=== PATIENT | male | born 1950 | race Caucasian/White ===

== ENCOUNTER 2022-10-13 14:53 | Emergency (ER) | payer MEDICARE, SELFPAY ==
--- NOTE | ~2022-10-13 | CT_ITS ---
EXAMINATION: CTA chest PE protocol DATE: 10/13/2022 20:08 INDICATION: Tachycardia TECHNIQUE: Computed tomography (CT) pulmonary angiogram of the chest was performed with 100 mL Omnipa que-350 intravenous contrast. Additional 3D reconstructions utilizing coronal maximum intensity proje ction (MIP) were performed. Automated exposure control and iterative reconstruction technique were em ployed. The dose-length product was 265.58 mGy-cm. COMPARISON: None FINDINGS: Excellent contrast opacification of the pulmonary arteries. There is mild streak artifact from dense contrast in the superior vena cava and right atrium. No significant motion artifact yielding diagnost ic for the study which demonstrates no pulmonary embolism. Mild biapical pleural-parenchymal scarring . No pneumonia, pulmonary edema, pleural effusion or pneumothorax. Heart size is normal. Atherosclero tic coronary artery calcification. No pericardial effusion. Thoracic aorta is normal in caliber. No p athologically enlarged thoracic lymphadenopathy. Mild thoracic spondylosis. IMPRESSION: 1. No pulmonary embolism or other acute cardiopulmonary disease. Reviewed, dictated and finalized at location A.
[2022-10-13 15:04] VITALS: BP 143/90; PULSE 106; RESP 20; TEMP 36.7; O2SAT 99
--- NOTE | 2022-10-13 15:10 | ECG_ITS ---
Measurements Intervals [place] Rate: 113 P: 85 OH: 141 QRS: 85 QRSD: 82 T: 65 QT: 327 QTc: 449 Interpretive Statements SINUS TACHYCARDIA POSSIBLE RIGHT ATRIAL ENLARGEMENT [0.25mV P WAVE] POSSIBLE LEFT ATRIAL ENLARGEMENT [-0.1mV P WAVE IN V1/V2] ABNORMAL RHYTHM ECG NO PREVIOUS ECG AVAILABLE FOR COMPARISON Electronically Signed On 10-14-2022 11:31:03 CDT by Eren Vivas M.D.
[2022-10-13 15:26] LABS: Basophils Absolute Auto 0.1 K/mm3 (0.0-0.1); Basophils Percent Auto 0.6 % (0.2-1.2); Eosinophils Percent Auto 12.8 % (0-4.4); Hematocrit 41.3 % (42.0-52.0); Hemoglobin 14.2 g/dL (14.0-18.0); Immature Granulocyte Absolute 0.03 K/mm3 (0.00-0.031); Immature Granulocyte Percent A 0.4 % (0-0.5); Lymphocytes Absolute Auto 1.63 K/mm3 (0.9-3.2); Lymphocytes Percent Auto 20.5 % (18.3-44.2); Mean Corpuscular HGB Conc 34.4 g/dl (32-36); Mean Corpuscular Hemoglobin 30.3 pg (26-34); Mean Corpuscular Volume 88.1 fl (80-100); Monocytes Absolute Auto 0.9 K/mm3 (0.1-0.6); Monocytes Percent Auto 11.2 % (2.6-8.5); Neutrophils Absolute Auto 4.3 K/mm3 (1.3-6.7); Neutrophils Percent Auto 54.5 % (45.5-73.1); Platelet Count Result 256 k/mm3 (150-375); Red Blood Count 4.69 M/mm3 (4.6-6.20); Red Cell Distribution Width 12.9 % (11.5-14.5)
[2022-10-13 15:37] LABS: Alanine Aminotransferase 19 U/L (6-50); Albumin Level 4.6 g/dL (3.5-5.1); Alkaline Phosphatase 78 U/L (38-126); Anion Gap 13 mmol/L (8-16); Aspartate Amino Transferase 24 U/L (17-59); Bilirubin,Total 0.5 mg/dL (0.2-1.3); Blood Urea Nitrogen 11 mg/dL (9-20); Calcium 9.3 mg/dL (8.4-10.2); Carbon Dioxide 23 mmol/L (22-30); Chloride 100 mmol/L (98-107); Estimated CRCL calculation 61 ml/min; Estimated Glomerular Filt Rate > 60; Glucose 112 mg/dL (65-110); Lipase 63 U/L (23-300); Potassium 3.6 mmol/L (3.4-5.0); Sodium 136 mmol/L (137-145)
[2022-10-13 16:01] LABS: Appearance Urine Clear (Clear); Bacteria Urine None Seen /hpf; Bilirubin Urine 2+ (Negative); Blood Urine Negative (Negative); Color Urine Dark Yellow (Yellow); Glucose Urine UA Negative (Negative); Hyaline Casts Urine Present /lpf; Ketones Urine 3+ mg/dL (Negative); Leukocyte Esterase Ur Negative LEU/UL (Negative); Need Manual Microscopic Reviewed; Nitrate Urine Negative (Negative); Protein Urine 2+ mg/dL (Negative); RBC Urine 0-2 /hpf (0-2); Specific Grav Ur 1.027 (1.001-1.035); Squamous Epithelial Cell Urine Occasional /hpf (Few); WBC Urine 0-5 /hpf
[2022-10-13 16:04] LABS: Add Urine Microscopic? YES
[2022-10-13 18:49] VITALS: PULSE 116
[2022-10-13] MEDS: SODIUM CHLORIDE 0.9% IV 1,000 ML 999 ML IV CONT (19:23)
[2022-10-13] MEDS: ONDANSETRON HCL ODT 4 MG TABLET PO (19:23)
[2022-10-13 19:33] VITALS: BP 155/86; PULSE 110; RESP 14; O2SAT 99
--- NOTE | 2022-10-13 19:39 | ED.ARRPALP ---
HPI - Arrhythmia/Palpitations General Chief Complaint: Arrhythmia/Palpitations Stated Complaint: rapid hr Time Seen by Provider: 10/13/22 18:57 History of Present Illness HPI narrative: This is a 71-year-old male, past history of coronary artery disease status post stenting, who presents to the emergency department complaining of palpitations associated with COVID. 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 This is associated with nausea and diarrhea with occasional streaks of blood. The patient states the diarrhea stopped yesterday. Since arriving here, he has felt overall improved. Related Data Allergies Allergy/AdvReac Type Severity Reaction Status Date / Time No Known Allergies Allergy Verified 10/13/22 18:51 Review of Systems Review of Systems: CONSTITUTIONAL: Denies fever, chills, or sweats. CARDIOVASCULAR: Palpitations denies chest pain, or edema. RESPIRATORY: Denies cough or dyspnea. GASTROINTESTINAL: Nausea and intermittent diarrhea denies abdominal pain, vomiting GENITOURINARY: Denies dysuria or hematuria. SKIN: Denies rash or itching. MUSCULOSKELETAL: Denies back pain, joint pain, or myalgia. NEUROLOGIC: Denies headache, numbness, dizziness, or weakness. PSYCHIATRIC: Denies anxiety or depression. [facility] Past Medical History Medical History ASHD (arteriosclerotic heart disease) COPD mixed type Mixed hyperlipidemia Squamous cell carcinoma of right ear Vitamin D deficiency Surgical History Surgical History Hx of spinal fusion Family History Family History Mother Patient's mother is , Onset Age: 90 Father Patient's father is , Onset Age: 70 Social History Social History Smoking status: Never smoker Alcohol intake: never Exam Narrative: GENERAL: Well-developed, well-nourished, and in no acute distress. HEAD: Normocephalic, atraumatic. EYES: PERRLA and EOMI. ENT: Nares clear, no rhinorrhea or epistaxis. Mucous membranes moist. Oropharynx without tonsillar hypertrophy exudate or other lesions. CHEST: Clear to auscultation. No respiratory distress. No wheezes rales or rhonchi HEART: Tachycardic with regular rhythm. No murmur heard. Normal peripheral pulses. ABDOMEN: Soft, nontender, nondistended, normal active bowel sounds. EXTREMITIES: Normal range of motion. No edema. SKIN: Warm, dry, no rash. NEURO: Alert and oriented x3. Moving all 4 limbs purposefully. PSYCH: Normal mood and affect. Course Course Emergency Course: 21:05 - CT PE scan negative for PE or other acute cardiopulmonary abnormality. CBC within normal limits. Chemistries demonstrate a mildly decreased sodium of 136 but is otherwise unremarkable. UA demonstrates ketonuria but is otherwise unremarkable. After IV fluids, the patient states he feels improved. Will discharge with antiemetics. The patient is outside of the window for Paxlovid. Discussed return and emergency precautions including signs/symptoms of respiratory distress and ACS. The patient voiced excellent understanding and is comfortable with the plan. All questions answered to his satisfaction. Vital Signs Vital signs: Vital Signs Temperature 98.1 F 10/13/22 15:04 Pulse Rate 106 H 10/13/22 15:04 Respiratory Rate 20 10/13/22 15:04 Blood Pressure 143/90 H 10/13/22 15:04 Pulse Oximetry 99 10/13/22 15:04 Oxygen Delivery Room Air 10/13/22 15:04 Temperature 98.1 F 10/13/22 15:04 Pulse Rate 110 H 10/13/22 21:45 Respiratory Rate 14 10/13/22 21:45 Blood Pressure 149/80 H 10/13/22 21:45 Pulse Oximetry 98 10/13/22 21:45 Oxygen Delivery Room Air 10/13/22 15:04 MDM - Arrhythmia/P
[2022-10-13 21:45] VITALS: BP 149/80; PULSE 110; RESP 14; O2SAT 98
== END 2022-10-13 21:47 | disposition home or self-care (01) ==
PROVIDERS: Emergency Medicine; Emergency Provider Preventive Medicine Aerospace Medicine; PCP Physician Assistant
DX: U07.1 COVID-19 (principal); R00.2 Palpitations; R00.0 Tachycardia, unspecified; I25.10 Atherosclerotic heart disease of native coronary artery without angina pectoris; J44.9 Chronic obstructive pulmonary disease, unspecified; E78.2 Mixed hyperlipidemia; E55.9 Vitamin D deficiency, unspecified; Z85.828 Personal history of other malignant neoplasm of skin; Z98.1 Arthrodesis status; R94.31 Abnormal electrocardiogram [ECG] [EKG]
CPT/HCPCS: 36415; 71275; 80053; 81001; 83690; 85025; 93005; 96360; 96361; 99284; A9270; J7030; Q9967

== ENCOUNTER 2024-03-21 00:50 | Day surgery (SDC) | payer MEDICARE, SELFPAY ==
[2024-03-21] VITALS (14 sets, daily range): BP systolic 109–135; BP diastolic 65–96; PULSE 67–84; RESP 14–22; TEMP 36.9; O2SAT 98–100; BMI 21.0
--- OUTSIDE RECORDS SUMMARY | 2024-03-21 00:52 | XMS_ITS | Clinical Summary ---
Author Organization [facility] [place] [facility] [address] [place] [address] Care Team Providers Care Cargo Broker Name Role Phone Krishan Roberson Primary Care Provider [phone] Yordy Dumont MD Unavailable [phone] MD Unavailable [phone] Allergies Active Allergy Reactions Criticality Noted Date Comments Dairy - All Forms And Ingredients Diarrhea,Nausea only,Stomach upset Low 10/25/2019 Ranolazine Headache,Nausea only Low 04/01/2017 backache Tramadol Nausea only Medium 07/27/2017 Medications aspirin 81 mg chewable tablet chew 1 tablet by oral route every day 0 0 06/25/19 16 Active nitroglycerin (NITROSTAT) 0.[address] 1 tablet by buccal route at the first sign of an attack; no more than 3 tabs are recommended within a 15 minute period. 25 3 12/22/19 14 Active albuterol HFA (PROVENTIL HFA,VENTOLIN HFA) 90 mcg/actuation inhaler inhale 2 puff by inhalation route every 4 - 6 hours as needed 0 Inhaler 0 10/15/19 16 Active ondansetron ODT (ZOFRAN-ODT) 8 mg disintegrating tablet Take 1 tablet (8 mg total) by mouth every 8 (eight) hours as needed for nausea or vomiting 30 tablet 08/16/19 22 Active naloxone (NARCAN) 4 mg/actuation spray,non-aerosol Administer 1 spray into affected nostril(s) as needed for opioid reversal or respiratory depression Call 911. Administer a single spray in one nostril. Repeat every 3 minutes as needed if no or minimal response. 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 Administer 1 spray into affected nostril(s) as needed for respiratory depression or opioid reversal 1 each 10/30/19 23 Active dicyclomine (BENTYL) 10 mg capsule TAKE ONE CAPSULE BY MOUTH THREE TIMES DAILY BEFORE MEALS NEEDED FOR ABDOMINAL CRAMPS 90 capsule 1 01/19/20 23 Active fluticasone propionate (FLONASE) 50 mcg/actuation nasal sprayIndications:C hronic rhinitis Administer 2 sprays into each nostril daily 1 each 05/28/19 24 Active cyclobenzaprine (FLEXERIL) 10 mg tabletIndications: Cervical radiculopathy,Lumb ar radiculopathy Take 1 tablet (10 mg total) by mouth nightly as needed for muscle spasms 30 tablet 2 02/03/20 24 025 Active HYDROcodone-acetam inophen (NORCO) 10-325 mg per tabletIndications: Pain Take 1 tablet by mouth 3 (three) times a day as needed for pain 90 tablet 02/22/19 25 025 Active HYDROcodone-acetam inophen (NORCO) 10-325 mg per tabletIndications: Pain Take 1 tablet by mouth 3 (three) times a day as needed for pain 90 tablet 03/24/19 25 025 Active HYDROcodone-acetam inophen (NORCO) 10-325 mg per tabletIndications: Pain Take 1 tablet by mouth 3 (three) times a day as needed for pain 90 tablet 04/24/19 25 025 Active isosorbide mononitrate ER (IMDUR) 60 mg 24 hr tablet Take 1 tablet (60 mg total) by mouth daily 90 tablet 2 02/09/20 24 Active atorvastatin (LIPITOR) 40 mg tablet Take 1 tablet (40 mg total) by mouth daily 90 tablet 2 02/09/20 24 Active metoprolol tartrate (LOPRESSOR) 25 mg immediate release tablet Take 1 tablet (25 mg total) by mouth 2 (two) times a day 180 tablet 2 02/09/20 24 Active Active Problems Problem Noted Date Diagnosed Date Status post insertion of drug eluting coronary a rtery stent 03/06/2024 Pseudophakia of both eyes 09/01/2023 Assessment & Plan (11/16/2023 12:46 PM CDT): 1 month PO PRK OS Doing well Normal Epi, no haze Return in 2 months Assessment & Plan (10/26/2023 9:57 AM CDT): 5 Day PO PRK OD Healing well, Patient reports better distance and near Removed bandage CL Continue moxi/pred QID, Start ointment at night Return in 3 weeks Assessment & Plan (09/01/2023 11:07 AM CDT): Referral from Dr. Jason De Los Santos for PRK over cataract surgery Pseudophakia OU PCIOL OU Patient would like to have OD set for intermediate Discussed PRK surgery, longer healing time, and discomfort. Discussed risk of corneal haze, off label use of mitomycin C and sunglasses Discussed risk of infection and activities following surgery. Discussed post-operative symptoms of nighttime glare and dryness after surgery Discussed presbyopia and reading glasses. Discussed no guarantee of 20/20 vision and risk of enhancement surgery Dr. Myers met with patient and discussed risks of surgery PRK OD Only -1.25 Goal OD In House Sensorineural hearing loss (SNHL) of both ears 0 05/28/2023 Assessment & Plan (05/28/2023 3:26 PM CDT): Hearing test moderate to severe SNHL Chronic rhinitis 05/28/2023 Assessment & Plan (05/28/2023 3:26 PM CDT): Flonase 2 sprays into each nostril while looking down over the sink, do not sniff in or blow nose after use for at least 30 minutes daily Palpitations 10/23/2022 Dyspepsia 07/12/2022 Assessment & Plan (07/12/2022 9:42 AM CDT): Chronic nausea. Will schedule EGD. Discussed healthy low fatlow acid diet. Anemia 07/12/2022 Assessment & Plan (07/12/2022 9:44 AM CDT): Mild normocytic anemia. Check iron studies, B12 and folate. Schedule EGD to complete GI evaluation. Normocytic anemia 07/02/2022 Personal history of colonic polyps 03/09/2022 Overview (03/09/2022): Added automatically from request for surgery [id number] Family history of colon cancer 03/09/2022 Overview (03/09/2022): Added automatically from request for surgery [id number] Screening for malignant neoplasm of colon 2021 Overview (11/03/2021): Added automatically from request for surgery [id number] Myofascial pain syndrome, cervical 09/01/2021 Mixed hyperlipidemia 08/28/2021 History of 2019 novel coronavirus disease (COVID -19) 08/28/2021 Lumbar radiculopathy 02/29/2020 Insomnia secondary to chronic pain 08/01/2019 Degenerative disc disease, cervical 07/05/2019 Bilateral occipital neuralgia 07/05/2019 Cervical radiculopathy 07/05/2019 prison (current) use of opiate analgesic 12/24 Cervicalgia 04/20/2018 COPD (chronic obstructive pulmonary disease) Dizziness 02/23/2018 Cervical post-laminectomy [id number] ACIF Chronic bilateral low back pain without sciatica 01/19/2018 Lumbar post-laminectomy syndrome 10/26/2017 Dyspnea on exertion 06/01/2016 Overview (07/17/2016): BEAVERS (dyspnea on exertion) 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 12/18/2015 Overview (05/29/2016): Coronary artery disease involving tanana coronary artery of tanana heart without angina pectoris Vasovagal syncope 12/18/2015 Overview (05/29/2016): Vasovagal syncope Orthostatic hypotension 10/15/2015 Overview (05/29/2016): Orthostatic hypotension Hypertension 10/15/2015 Overview (05/29/2016): Labile hypertension Chronic fatigue syndrome 10/15/2015 Overview (05/29/2016): Chronic fatigue Central perforation of tympanic membrane 010 Resolved Problems Problem Noted Date Diagnosed Date Resolved Date Dyslipidemia 12/18/2015 08/28/2021 Overview (05/29/2016): Dyslipidemia Encounters Date Type Department Care Team Description 03/06/2024 10:30 AM CAR GROOMER Office Visit [facility] [address] [place] [phone] Efrain Chaney MD 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 (HCC) (Primary Dx) 03/06/2024 Telephone [facility] Cardiology [address] [place] [phone] Efrain Chaney MD 02/09/2024 Telephone [facility] Cardiology [address] [place] [phone] Efrain Chaney MD Med Refill 02/03/2024 10:27 AM CAR GROOMER - 02/03/2024 11:59 PM CAR GROOMER Hospital Encounter [facility] [address] [place] [address] Dyspnea, unspecified type Discharge Disposition: Discharge to home or self care 02/03/2024 9:40 AM CAR GROOMER - 02/03/2024 11:59 PM CAR GROOMER Hospital Encounter [facility] A, Ameya. [address] [place] [address] MD Lumbar post-laminectomy syndrome (Primary Dx); Cervical radiculopathy; Lumbar radiculopathy; Cervical post-laminectomy [id number] ACIF Discharge Disposition: Discharge to home or self care 01/12/2024 Telephone [facility] [address] [place] [address] Power Le OD Reschedule 01/10/2024 Telephone [facility] [address] [place] [address] Shayla Joe, DERRELL 01/07/2024 1:50 PM CAR GROOMER Lab [facility] [address] [place] [address] Chronic fatigue syndrome; 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 (HCC) 12/29/2023 1:00 PM CAR GROOMER Office Visit [facility] [address] [place] [address] Shayla Joe, DERRELL Lipid screening (Primary Dx); Chronic fatigue syndrome; 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 (HCC); Dyspnea, unspecified type from Last 3 Months Surgical History Surgery Date Site/Laterality Comments SPINE SURGERY OTHER SURGICAL HISTORY ORIF right ankle CARPAL TUNNEL RELEASE Right ULNAR TUNNEL RELEASE Right COLONOSCOPY 02/23/2016 - 02/21/2017 UPPER GASTROINTESTINAL ENDOSCOPY Medical History Medical History Date Comments BEAVERS (dyspnea on exertion) Orthostatic hypotension Dyslipidemia Coronary artery disease Asthma Irritable bowel syndrome Hypertension treated by PCP Covid-19 06/22/2021 Stroke (HCC) Family History Medical History Relation Name Comments Colon cancer Maternal Grandmother Seizures Mother Seizure disorde r; Arthritis Other 1 Family history of Arthritis; Cancer Other 2 Family history of Cancer, unknown; Hypertension Other 3 Family history of Hypertension; Alcohol abuse Other 4 Family history of Alcoholism; Heart disease Other 5 Family history of heart problems; Lung disease Other 6 Family history of lung problems; Relation Name Status Comments Maternal Grandmother Mother Other 1 Other 2 Other 3 Other 4 Other 5 Other 6 Social History Tobacco Use Types Packs/Day Years Used Date Smoking Tobacco: Never Smokeless Tobacco: Never Tobacco Cessation:Counseling Given: Not Answered Alcohol Use Standard Drinks/Week Comments No 0 (1 standard drink = 0.6 oz pur e alcohol) AUDIT-C Answer Date Recorded Q1: How often do you have a drink containing alc ohol? Never 06/05/2022 Average Number of Drinks Not on file 023 Frequency of Binge Drinking Not on file 05/23 PHQ-2 Answer Date Recorded PHQ-2 Total Score (If total score is 3 or more points, staff should administer the PHQ-9) 0 02/03/2024 Personal Safety Answer Date Recorded Have you ever been in or are you currently in a harmful physical or emotional relationship or is someone making you feel afraid or unsafe? Denies 07/07/2022 Sex and Gender Information Value Date Recorded Sex Assigned at Not on file Legal Sex Male 6:35 PM CAR GROOMER Gender Identity Male 09/12/2019 2:57 PM CDT Sexual Orientation Straight 09/12/2019 2: 57 PM CDT Obstetrics History Last Filed Vital Signs Vital Sign Reading Time Taken Comments Blood Pressure 116/68 03/06/2024 10:20 AM CAR GROOMER Pulse 69 03/06/2024 10:20 AM CAR GROOMER Temperature 36.6 ??C (97.9 ??F) 07/07/2022 2:30 PM CD T Respiratory Rate 18 02/03/2024 10:02 AM CAR GROOMER Oxygen Saturation 98% 03/06/2024 10:20 AM CAR GROOMER Inhaled Oxygen Concentration - - Weight 71.7 kg (158 lb) 03/06/2024 10:20 AM CAR GROOMER Height 182.9 cm (6') 03/06/2024 10:20 AM CAR GROOMER Body Mass Index 21.43 03/06/2024 10:20 AM CAR GROOMER Plan of Treatment Health Maintenance Due Date Last Done Comments Fall Risk Assessment 1950 Hepatitis C Screening 1950 Pneumococcal vaccine 65+ (1 of 2 - PCV) 1958 DTaP/Tdap/Td Vaccine (1 - Tdap) 10/18/1963 Hepatitis B Screening 1970 Zoster Vaccine (1 of 2) 2002 Well Visit 65+ 2017 Influenza Vaccine (#1) 2023 Depression Screening 02/02/2025 02/03/2024, 02/03/2024, 11/04/2023, Additional history exists Colon Cancer Screening-Colonoscopy 03/31/2032 03/31/2022 Colon Cancer Screening-CT Colonography Discontinued 03/31/2022 Colon Cancer Screening-DNA Stool Discontinued 03/31/19 Colon Cancer Screening-FIT Discontinued 03/31/2022 Colon Cancer Screening-Sigmoidoscopy Discontinued 03/31/2022 Goals Goal Patient Goal Type Associated Problems Recent Progress Patient-Stated? Author [facility] On track( 022 2:23 PM CAR GROOMER) Susan Simmons RN Note: Patient will establish a comfort-function goal and identify the pain level that will allow the patient to perform desired activities and achieve an acceptable quality of life. 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 (HCC) DIFFERENTIAL AUTO Routine 01/07/2024 1:5 5 PM CAR GROOMER Chronic fatigue syndrome CBC WITH AUTO DIFFERENTIAL Routine 01/07/2024 1:55 PM CAR GROOMER Chronic fatigue syndrome COMPREHENSIVE METABOLIC PANEL Routine 01/07/2024 1:55 PM CAR GROOMER 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 Sob x 2-3 months ??hx stents ?? TECHNIQUE: PA and lateral ??radiographic view(s) of the chest. COMPARISON: None FINDINGS: LUNGS: ??No discrete consolidation. ??No effusion or pneumothorax. ?? HEART/MEDIASTINUM: ??Cardiac silhouette and mediastinal contours are within normal limits. ??Atherosclerotic calcification of the thoracic aorta. LINES/TUBES: ??Cervical fusion hardware partially visualized. BONES: ??Cervical and thoracic spondylosis with degenerative disc disease. ??No acute process IMPRESSION: No acute cardiopulmonary abnormality. THIS IS AN ELECTRONICALLY VERIFIED FINAL REPORT 02/10/2024 1:54 PM - Electronically signed by ??Adela Angulo M.D. TW: TW D: ??02/10/2024 1:54 PM T: ??02/10/2024 1:54 PM Report ID: [id number] Reading Location: ??[id number] Procedure Note Adela Angulo MD - 02/10/2024 EXAM DESCRIPTION: XR CHEST PA LATERAL 2 VIEWS REASON FOR STUDY: Dyspnea Sob x 2-3 months hx stents TECHNIQUE: PA and lateral radiographic view(s) of the chest. COMPARISON: None FINDINGS: LUNGS: No discrete consolidation. No effusion or pneumothorax. HEART/MEDIASTINUM: Cardiac silhouette and mediastinal contours are within normal limits. Atherosclerotic calcification of the thoracic aorta. LINES/TUBES: Cervical fusion hardware partially visualized. BONES: Cervical and thoracic spondylosis with degenerative disc disease.No acute process IMPRESSION: No acute cardiopulmonary abnormality. THIS IS AN ELECTRONICALLY VERIFIED FINAL REPORT 02/10/2024 1:54 PM - Electronically signed by Adela Angulo M.D. TW: TW Report ID: [id number] Reading Location: [place] [address] us Shayla Joe CELL ATTENDANT IMG XR PROCEDURES Final Resu lt * eGFR (01/07/2024 1:55 PM CAR GROOMER) eGFR 75 >=60 mL/min/1. 73 m2 Comment: Interpretive Data Reference Interval Normal ?>/= 90 mL/min/1.73m2 Mildly decreased* ? 60 - 89 mL/min/1.73m2 Mildly to moderately decreased ?45 - 59 mL/min/1.73m2 Moderately to severely decreased ??30 - 44 mL/min/1.73m2 Severely decreased ?15 - 29 mL/min/1.73m2 Kidney Failure ?< 15 ??mL/min/1.73m2 *Relative to young adult level Estimated glomerular filtration rate is determined by the 2020 CKD-EPI equation recommended by the National Kidney Foundation (A Unifying Approach to GFR Estimation: Recommendations of the NKF-ASK Task Force on Reassessing the Inclusion of Race in Diagnosing Kidney Disease, JASN 2020). The CKD-EPI equation should not be used for patients with unstable renal function and has not been validated in children and those over 70. Current interpretive data was last reviewed 2020. Testing performed by: [facility], [address] [place] [address]., [id number] Blood 01/07/2024 1:55 PM CAR GROOMER 01/07/2024 8:43 PM CAR GROOMER us Shayla Joe NP LAB BLOOD ORDERABLES Final R esult [facility] ([place]) 1 [facility] [place] [address] * (ABNORMAL) Differential, auto (01/07/2024 1:55 PM CAR GROOMER) Pathologist [facility] Neutrophil abs 3.1 1.5 - 6.5 K/cumm Comment:Testing performed by : [facility], [address] [place] [address]., [id number] Imm gran abs 0.0 0.0 - 0.1 K/cumm [facility] ([place]) Comment:Testing performed by : [facility], [address] [place] [address]., [address] Lymphocyte abs 2.2 0.8 - 3.3 K/cumm [facility] ([place]) Comment:Testing performed by : [facility], [address] [place] [address]., [id number] Monocyte abs 0.5 0.2 - 0.8 K/cumm [facility] ([place]) Comment:Testing performed by : [facility], [address] [place] [address]., [id number] Eosinophil abs 2.0(H) 0.0 - 0.5 K/cumm [facility] ([place]) Comment:Testing performed by : [facility], [address] [place] [address]., [address] Basophil abs 0.1 0.0 - 0.1 K/cumm [facility] ([place]) Comment:Testing performed by : [facility], [address] [place] [address]., [address] Neutrophil pct 39.8 % [facility] ([place]) Comment: Interpretive Data Percent cell count reference ranges are not reported, since discordance with absolute values may lead to misinterpretation of CBC data. Current Interpretive Data was last revised on 2017. Testing performed by: [facility], [address] [place] [address]., [address] Imm gran pct 0.3 % [facility] ([place]) Comment: Interpretive Data Percent cell count reference ranges are not reported, since discordance with absolute values may lead to misinterpretation of CBC data. Current Interpretive Data was last revised on 2017. Testing performed by: [address] [address] Lymphocyte pct 27.7 % [facility] ([place]) Comment: Interpretive Data Percent cell count reference ranges are not reported, since discordance with absolute values may lead to misinterpretation of CBC data. Current Interpretive Data was last revised on 2017. Testing performed by: [address] [address] Monocyte pct 6.2 % [facility] ([place]) Comment: Interpretive Data Percent cell count reference ranges are not reported, since discordance with absolute values may lead to misinterpretation of CBC data. Current Interpretive Data was last revised on 2017. Testing performed by: [facility], [address] [place] [address]., [address] Eosinophil pct 25.1 % [facility] ([place]) Comment: Interpretive Data Percent cell count reference ranges are not reported, since discordance with absolute values may lead to misinterpretation of CBC data. Current Interpretive Data was last revised on 2017. Testing performed by: [facility], [address] [place] [address]., [address] Basophil pct 0.9 % [facility] ([place]) Comment: Interpretive Data Percent cell count reference ranges are not reported, since discordance with absolute values may lead to misinterpretation of CBC data. Current Interpretive Data was last revised on 2017. Testing performed by: [facility], [address] [place] [address], [id number] Blood 01/07/2024 1:55 PM CAR GROOMER 01/07/2024 8:37 PM CAR GROOMER us Shayla Joe NP LAB BLOOD ORDERABLES Final R esult [facility] ([place]) 1 [facility] [place] [address] * Thyroid Function [place] (01/07/2024 1:55 PM CAR GROOMER) TSH 1.74 0.30 - 4.20 mcIUnit/mL Comment:Testing performed by : [facility], [address] [place] [address], [address] Blood 01/07/2024 1:55 PM CAR GROOMER 01/07/2024 8:37 PM CAR GROOMER us Shayla Joe CELL ATTENDANT LAB BLOOD ORDERABLES Final R esult [facility] ([place]) 1 [facility] [place] [place] [address] * (ABNORMAL) CBC with auto differential (01/07/2024 1:55 PM CAR GROOMER) WBC 7.8 3.8 - 9.9 K/cumm Comment:Testing performed by : [address], [address] Hgb 12.3(L) 13.0 - 17.5 g/dL [facility] ([place]) Comment:Testing performed by : [address], [address] Hct 37.0(L) 38.9 - 50.3 % [facility] ([place]) Comment:Testing performed by : [address], [address] Plt 236 150 - 400 K/cumm [facility] ([place]) Comment:Testing performed by : [address], [address] MPV 10.7 9.1 - 12.3 fL [facility] ([place]) Comment:Testing performed by : [address], [address] RBC 3.98(L) 4.30 - 5.80 M/cumm [facility] ([place]) Comment:Testing performed by : [address], [address] MCV 93.0 81.3 - 96.4 fL [facility] ([place]) Comment:Testing performed by : [address], [address] MCH 30.9 27.1 - 33.3 pg [facility] ([place]) Comment:Testing performed by : [address], [address] MCHC 33.2 32.3 - 35.7 g/dL [facility] ([place]) Comment:Testing performed by : [address], [address] RDW CV 13.5 11.1 - 14.9 % [facility] ([place]) Comment:Testing performed by : [address], [address] RDW SD 46.1 35.7 - 48.1 fL [facility] ([place]) Comment:Testing performed by : [address], [address] NRBC abs 0.00 0.00 - 0.01 K/cumm [facility] ([place]) Comment:Testing performed by : [address], [address] Blood 01/07/2024 1:55 PM CAR GROOMER 01/07/2024 8:37 PM CAR GROOMER Shayla Joe NP LAB BLOOD ORDERABLES Final R esult [facility] ([place]) 1 [facility] Department [place] [address] * Comprehensive metabolic panel (01/07/2024 1:55 PM CAR GROOMER) Sodium 139 135 - 145 mmol/L Comment:Testing performed by : [address], [address] Potassium, pl 4.3 3.3 - 4.9 mmol/L [facility] ([place]) Comment:Testing performed by : [address], [address] Chloride 103 97 - 110 mmol/L [facility] ([place]) Comment:Testing performed by : [address], [address] CO2 26 22 - 32 mmol/L [facility] ([place]) Comment:Testing performed by : [address], [address] Anion gap 10 2 - 15 mmol/L [facility] ([place]) Comment:Testing performed by : [address], [address] BUN 14 6 - 25 mg/dL [facility] ([place]) Comment:Testing performed by : [address], [address] Creatinine 1.06 0.80 - 1.30 mg/dL [facility] ([place]) Comment:Testing performed by : [address], [address] Glucose 111 70 - 199 mg/dL [facility] ([place]) Comment: Interpretive Data Fasting glucose >/= 126 mg/dl is diagnostic for diabetes. ?? Fasting is defined as no caloric intake for at least 8 hours. Fasting glucose between 100 mg/dl to 125 mg/dl is diagnostic of prediabetes. In a patient with classic symptoms of hyperglycemia or hyperglycemic crisis, a random glucose >/= 200 mg/dl is diagnostic for diabetes. In the absence of unequivocal hyperglycemia, results should be confirmed by repeat testing. The classification and Diagnosis of Diabetes Diabetes Care 2021; 46: S19-S40. Current interpretive data was last revised 2022. Testing performed by: [facility], [address] [place] [address]., [address] Calcium 9.5 8.5 - 10.3 mg/dL [facility] ([place]) Comment:Testing performed by : [address], [address] Bilirubin, total 0.5 0.1 - 1.2 mg/dL [facility] ([place]) Comment:Testing performed by : [address], [address] Protein, pl 7.4 6.5 - 8.5 g/dL [facility] ([place]) Comment:Testing performed by : [address], [address] Albumin 4.3 3.5 - 5.0 g/dL [facility] ([place]) Comment:Testing performed by : [address] [address] Alk phos 72 40 - 130 Units/L [facility] Comment:Testing performed by : [address], [address] ALT 14 7 - 55 Units/L [facility] Comment:Testing performed by : [address], [address] AST 21 10 - 50 Units/L [facility]) Comment:Testing performed by : [address], [address] Blood 01/07/2024 1:55 PM CAR GROOMER 01/07/2024 8:37 PM CAR GROOMER Shayla Joe NP LAB BLOOD ORDERABLES Final R esult [facility] [place]) [facility] Department [place] [address] * POCT lipid panel (12/29/2023 1:05 PM CAR GROOMER) Cholesterol, POC 120 mg/dL HDL, POC 39 mg/dL Triglycerides, POC 67 mg/dL LDL Cholesterol POC 68 mg/dL Chol/HDL Ratio, POC 1.8 Non-HDL Cholesterol, POC 81 mg/dL Cholesterol Total, POC 120 mg/dL Capillary blood 12/29/2023 1 :05 PM CAR GROOMER us Shayla Joe NP POINT OF CARE TEST ORDERABLE S Final Result * COLONOSCOPY (03/31/2022 10:24 AM CAR GROOMER) Anatomical Region Laterality Modality Other Narrative Procedure Note Chilo Solorio MD - 03/31/2022 10:24 AM CST [facility] Patient Name: Magnus Muhammad Procedure Date: 03/31/2022 10:24 AM Date of : 1950 Admit Type: Outpatient Age: 71 Gender: Male Attending MD: Chilo Solorio M.D. Room: [facility] ENDOSCOPY ROOM 1 Note Status: Finalized Patient Profile: This is a 71 year old male. Patient has chronicpain in the left lower quadrant area. Had episode oflower GI bleeding 6 months ago possibly secondary diverticulosis. History of polyps. No familyhistory of colon cancer Procedure: Colonoscopy Indications: High risk colon cancer surveillance: Personalhistory of colonic polyps, Last colonoscopy: 2017 Referring MD: GARTH Whitley Providers: Chilo Solorio M.D. Impression: - Diverticulosis in the sigmoid colon. - Internal hemorrhoids. - No specimens collected. Recommendation: - Repeat colonoscopy in 6 years for screeningpurposes. - Low residue diet and avoid nuts, popcorn, andseeds. Drink plenty of fluids. - Follow up in our GI office if abdominal pain continued. Medicines: Monitored Anesthesia Care Complications: No immediate complications. Estimated Blood Loss: Estimated blood loss: none. Procedure: Pre-Anesthesia Assessment: - Prior to the procedure, a History and Physicalwas performed, and patient medications and allergieswere reviewed. The patient's tolerance of previous anesthesia was also reviewed. The risks andbenefits of the procedure and the sedation options and risks were discussed with the patient. All questions were answered, and informed consent was obtained. Prior Anticoagulants: The patient has taken noanticoagulant or antiplatelet agents. ASA Grade Assessment: II -A patient with mild systemic disease. After reviewing the risks and benefits, the patient was deemed in satisfactory condition to undergo the procedure. The benefits, risks and alternatives of theprocedure and sedation were discussed and informed consentwas obtained. All questions were answered. Please referto the signed informed consent document in the medical record. The bowel preparation used was Miralax and bisacodyl tablets via split dose instruction. The scope was passed under direct vision. The Pediatric Colonoscope PCF-H190L [id number] was introducedthrough the anus and advanced to the the cecum, identifiedby appendiceal orifice and ileocecal valve. Thequality of the bowel preparation was good. Bowel prep was administered using a split dose. Findings: The perianal and digital rectal examinations were normal. The descending colon, transverse colon, ascending colon and cecum appeared normal. Multiple medium-mouthed diverticula were found in the sigmoid colon. Mild erythema noted in the very distal part of sigmoid colon likely nonspecific but no definite inflammatory changes noted Internal hemorrhoids were found during retroflexion. The hemorrhoids were small. Electronically signed by Chilo Solorio M.D. Chilo Solorio M.D. 03/31/2022 12:17:52 PM Number of Addenda: 0 Note Initiated On: 03/31/2022 10:24 AM Procedure Code(s): --- Professional --- G0105, Colorectal cancer screening; colonoscopy on individual at high risk Diagnosis Code(s): --- Professional --- Z86.010, Personal history of colonic polyps K64.8, Other hemorrhoids K57.30, Diverticulosis of large intestine without perforation orabscess without bleeding CPT copyright 2020 [employer]. All rights reserved. The codes documented in this report are preliminary and upon history card clerk reviewmay be revised to meet current compliance requirements. Recognized by the [employer] for promoting quality in endoscopy Chilo Solorio MD ENDOSCOPY PROCEDURES Final Result from Last 3 Months or Most Recently Relevant to Health Maintenance Insurance MEDICARE SOLUTIONS MEDICARE SOLUTIONS MEDICARE SOLUTIONS Advance Directives For more information, please contact: [phone] * Full Code (Latest Code Status on File) Date Activated Date Inactivated Comments 07/07/2022 11:22 AM 07/07/2022 6:54 PM * Full Code Date Activated Date Inactivated Comments 03/31/2022 10:36 AM 03/31/2022 4:53 PM * Full Code Date Activated Date Inactivated Comments 03/31/2022 10:36 AM 03/31/2022 10:36 AM Care Teams Cargo Broker Relationship Specialty Start Date End Date Krishan Roberson PA [address] [place] [address] PCP - General 07/27/17 Yordy Dumont MD [address] [facility] [address] [place] [address] Anesthesiologist Pain Management 01/05/22 Rd Adams MD [address] [place] [address] [address] [place] [address] Consulting Physician Anesthesiology 11/04/23
--- OUTSIDE RECORDS SUMMARY | 2024-03-21 00:52 | XMS_ITS | Encounter Summary ---
Author Organization [facility] Healthcare Address [address] [place] [address] Care Team Providers Care Licensed Guide Name Role Phone Krishan Roberson Primary Care Provider Yordy Dumont MD Unavailable [phone] [address] Adams MD Unavailable [phone] Encounter Details Date Type Department Care Team (Late st Contact Info) Description 12/02/2020 Documentation [facility] [address] [place] [address] A, Ameya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 Gender Identity Male 09/12/2019 2:57 PM CDT Sexual Orientation Straight 09/12/2019 2: 57 PM CDT documented as of this encounter Plan of Treatment Not on file documented as of this encounter Visit Diagnoses Not on filedocumented in this encounter Care Teams Licensed Guide Relationship Specialty Start Date End Date Krishan Roberson PA [address] [place] [address] PCP - General 07/27/17 Yordy Dumont MD [address] [place] [address] [address] [place] [id number] Anesthesiologist Pain Management 01/05/22 Rd Adams MD [address] [place] [address] [address] [place] [id number] Consulting Physician Anesthesiology 11/04/23 documented as of this encounter
--- OUTSIDE RECORDS SUMMARY | 2024-03-21 00:53 | XMS_ITS ---
Author Organization [facility] Address [address] [place] [address] Phone Care Team Providers Care Honey Blender Name Role Phone Unavailable Unavailable Unavailable Plan of Treatment No Plan of Treatment Recorded Assessments Includes: Assessments for all patient encounters No Assessments Recorded Medical Equipment - Implanted Devices Includes: Current and historical Devices No Medical Equipment Recorded Medications Administered Includes: Administered Medications in patient's chart No Administered Medications Recorded Results Includes: Results from 03/21/2023 through 03/21/2024 No Results Recorded For Specified Dates History of Present Illness History of Present Illness not supported for this document type No History of Present Illness Recorded Social History No Social History Recorded - Smoking Status Unknown Medical History Includes: Medical History in patient's chart No Medical History Recorded Family History Includes: Family History in patient's chart No Family History Recorded Review of Systems Review of Systems not supported for this document type No Review of Systems Recorded Mental Status No Mental Status Recorded Functional Status No Functional Status Recorded Physical Exam Physical Exam not supported for this document type No Physical Exam Recorded Clinical Notes Includes: Signed Clinical Notes starting from 03/13/2022 No Clinical Notes Recorded
--- OUTSIDE RECORDS SUMMARY | 2024-03-21 00:53 | XMS_ITS ---
Care Plan - [facility] Created on: March 21, 2024 MICHELLE REES : 1950 Sex: Male Author Organization [facility] Address [address] [place] [address] Phone Care Team Providers Care Solder Deposit Operator Name Role Phone Unavailable Unavailable Unavailable
--- OUTSIDE RECORDS SUMMARY | 2024-03-21 00:53 | XMS_ITS | Referral Summary ---
Author Organization [facility] [address] [place] [address] 162 [address] [facility] [address] [place] [address] Care Team Providers Care Water Team Leader Name Role Phone Krishan Roberson Primary Care Provider [phone] Yordy Dumont MD Unavailable [phone] Adams MD Unavailable Encounters Date Type Department Care Team Description 03/06/2024 Telephone [facility] [address] [facility] [address] [place] [address] Efrain Chaney MD 03/06/2024 10:30 AM PERSONAL LINES INSURANCE AGENT Office Visit [facility] Cardiology [address] [facility] [address] [place] [phone] Efrain Chaney MD 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) (Primary Dx) 02/09/2024 Telephone [facility] Cardiology [address] [place] [address] 162 [address] [place] [address] Efrain Chaney MD Med Refill 02/03/2024 10:27 AM PERSONAL LINES INSURANCE AGENT - 02/03/2024 11:59 PM PERSONAL LINES INSURANCE AGENT Hospital Encounter [facility] [address] [place] [address] Dyspnea, unspecified type Discharge Disposition: Discharge to home or self care 02/03/2024 9:40 AM PERSONAL LINES INSURANCE AGENT - 02/03/2024 11:59 PM PERSONAL LINES INSURANCE AGENT Hospital Encounter [facility] 2 [facility] B[facility] A, Ameya. [id number] Adams MD Lumbar post-laminectomy syndrome (Primary Dx); Cervical radiculopathy; Lumbar radiculopathy; Cervical post-laminectomy [id number] Discharge Disposition: Discharge to home or self care 01/12/2024 Telephone [facility] [address] [place] [address] Power Le, OD Reschedule 01/10/2024 Telephone [facility] [address] [place] [address] Shayla Joe, DERRELL 01/07/2024 1:50 PM PERSONAL LINES INSURANCE AGENT Lab [facility] [address] [place] [address] Chronic fatigue syndrome; 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) 12/29/2023 1:00 PM PERSONAL LINES INSURANCE AGENT Office Visit [facility] Cardiology [address] [facility] [address] [place] [address] Shayla Joe, DERRELL Lipid screening (Primary Dx); Chronic fatigue syndrome; 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); Dyspnea, unspecified type from Last 3 Months Allergies Active Allergy Reactions Criticality Noted Date [...] 22 Active naloxone (NARCAN) 4 mg/actuation spray,non-aerosolI ndications:[facility] (current) use of opiate analgesic Administer 1 [...] (03/09/2022): Added automatically from request for surgery [id number] Family history of colon cancer 03/09/2022 Overview (03/09/2022): Added automatically from request for surgery [id number] Screening for malignant neoplasm of colon 2021 Overview (11/03/2021): Added automatically from request for surgery [id number] Myofascial pain syndrome, cervical 09/01/2021 Mixed hyperlipidemia 08/28/2021 History of 2019 novel coronavirus disease (COVID -19) 08/28/2021 Lumbar radiculopathy 02/29/2020 Insomnia secondary to chronic pain 08/01/2019 Degenerative disc disease, cervical 07/05/2019 Bilateral occipital neuralgia 07/05/2019 Cervical radiculopathy 07/05/2019 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 12/24 Cervicalgia 04/20/2018 COPD (chronic obstructive pulmonary disease) Dizziness 02/23/2018 Cervical post-laminectomy [id number] ACIF Chronic bilateral low back pain without sciatica 01/19/2018 Lumbar post-laminectomy syndrome 10/26/2017 Dyspnea on exertion 06/01/2016 Overview (07/17/2016): BEAVERS (dyspnea on exertion) Coronary artery disease of n 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 12/18/2015 Overview (05/29/2016): Coronary artery disease involving gila river coronary artery of gila river heart without angina pectoris Vasovagal syncope 12/18/2015 Overview (05/29/2016): Vasovagal syncope Orthostatic hypotension 10/15/2015 Overview (05/29/2016): Orthostatic hypotension Hypertension 10/15/2015 Overview (05/29/2016): Labile hypertension Chronic fatigue syndrome 10/15/2015 Overview (05/29/2016): Chronic fatigue Central perforation of tympanic membrane 010 Resolved Problems Problem Noted Date Diagnosed Date Resolved Date Dyslipidemia 12/18/2015 08/28/2021 Overview (05/29/2016): Dyslipidemia Social History Tobacco Use Types Packs/Day Years [...] on file Legal Sex Male 6:35 PM PERSONAL LINES INSURANCE AGENT Gender Identity Male 09/12/2019 2:57 PM CDT Sexual Orientation Straight 09/12/2019 2: 57 PM CDT Last Filed Vital Signs Vital Sign Reading Time Taken Comments Blood Pressure 116/68 03/06/2024 10:20 AM PERSONAL LINES INSURANCE AGENT Pulse 69 03/06/2024 10:20 AM PERSONAL LINES INSURANCE AGENT Temperature 36.6 ??C (97.9 ??F) 07/07/2022 2:30 PM CD T Respiratory Rate 18 02/03/2024 10:02 AM PERSONAL LINES INSURANCE AGENT Oxygen Saturation 98% 03/06/2024 10:20 AM PERSONAL LINES INSURANCE AGENT Inhaled Oxygen Concentration - - Weight 71.7 kg (158 lb) 03/06/2024 10:20 AM PERSONAL LINES INSURANCE AGENT Height 182.9 cm (6') 03/06/2024 10:20 AM PERSONAL LINES INSURANCE AGENT Body Mass Index 21.43 03/06/2024 10:20 AM PERSONAL LINES INSURANCE AGENT Plan of Treatment Not on file Goals Goal Patient Goal Type Associated Problems Recent Progress Patient-Stated? Author [facility] On track( 022 2:23 PM PERSONAL LINES INSURANCE AGENT) Susan Simmons, RN Note: Patient will establish a comfort-function goal and identify the pain level that will allow the patient to perform desired activities and achieve an acceptable quality of life. 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) DIFFERENTIAL AUTO Routine 01/07/2024 1:5 5 PM PERSONAL LINES INSURANCE AGENT Chronic fatigue syndrome CBC WITH AUTO DIFFERENTIAL Routine 01/07/2024 1:55 PM PERSONAL LINES INSURANCE AGENT Chronic fatigue syndrome COMPREHENSIVE METABOLIC PANEL Routine 01/07/2024 1:55 PM PERSONAL LINES INSURANCE AGENT 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) THYROID FUNCTION CASCADE Routine 01/07/2024 1:55 PM PERSONAL LINES INSURANCE AGENT Chronic fatigue syndrome POCT LIPID PANEL Routine 12/29/2023 1:05 PM PERSONAL LINES INSURANCE AGENT Lipid screening COLONOSCOPY 03/31/2022 10:24 AM PERSONAL LINES INSURANCE AGENT from Last 3 Months or Most Recently Relevant to Health Maintenance Results * X-ray chest 2 views (02/03/2024 10:40 AM PERSONAL LINES INSURANCE AGENT) Anatomical Region Laterality Modality Body, Chest N/A Computed Radiogr aphy 02/10/2024 1:53 PM PERSONAL LINES INSURANCE AGENT Narrative 02/10/2024 1:54 PM PERSONAL LINES INSURANCE AGENT EXAM DESCRIPTION: XR CHEST PA LATERAL 2 [...] Electronically signed by ??Adela Angulo M.D. TW: KWESI D: ??02/10/2024 1:54 PM T: ??02/10/2024 1:54 PM Report ID: [id number] Reading Location: ??[id number] Procedure Note Adela Angulo MD - 02/10/2024 [...] Adela Angulo M.D. TW: TW Report ID: [id number] Reading Location: [place] [address] us Shayla Joe NP IMG XR PROCEDURES Final Resu lt * eGFR (01/07/2024 1:55 PM PERSONAL LINES INSURANCE AGENT) eGFR 75 >=60 mL/min/1. 73 m2 Comment: [...] was last reviewed 2020. Testing performed by: [facility], [address] [place] [address], [place]., [address] Blood 01/07/2024 1:55 PM PERSONAL LINES INSURANCE AGENT 01/07/2024 8:43 PM PERSONAL LINES INSURANCE AGENT us Shayla Bebe Tatyana BEEF GRINDER LAB BLOOD ORDERABLES Final R esult [facility] ([place]) 1 [facility] Department [place] [address] * (ABNORMAL) Differential, auto (01/07/2024 1:55 PM PERSONAL LINES INSURANCE AGENT) Neutrophil abs 3.1 1.5 - 6.5 K/cumm Comment:Testing performed by : [address], [address] Imm gran abs 0.0 0.0 - 0.1 K/cumm [facility] ([place]) Comment:Testing performed by : [address], [address] Lymphocyte abs 2.2 0.8 - 3.3 K/cumm [facility] ([place]) Comment:Testing performed by : [address], [address] Monocyte abs 0.5 0.2 - 0.8 K/cumm [facility] ([place]) Comment:Testing performed by : [facility], [address] [place] [address]., [address] Eosinophil abs 2.0(H) 0.0 - 0.5 K/cumm [facility] ([place]) Comment:Testing performed by : [address] [address] Basophil abs 0.1 0.0 - 0.1 K/cumm [facility] ([place]) Comment:Testing performed by : [address], [address] Neutrophil pct 39.8 % [facility] ([place]) Comment: Interpretive Data Percent cell count reference ranges are not reported, since discordance with absolute values may lead to misinterpretation of CBC data. Current Interpretive Data was last revised on 2017. Testing performed by: [address], [address] Imm gran pct 0.3 % [facility] ([place]) Comment: Interpretive Data Percent cell count reference ranges are not reported, since discordance with absolute values may lead to misinterpretation of CBC data. Current Interpretive Data was last revised on 2017. Testing performed by: [address], [place]., [address] Lymphocyte pct 27.7 % [facility] ([place]) Comment: Interpretive Data Percent cell count reference ranges are not reported, since discordance with absolute values may lead to misinterpretation of CBC data. Current Interpretive Data was last revised on 2017. Testing performed by: [facility], [address] [place] [address]., [address] Monocyte pct 6.2 % [facility] ([place]) Comment: Interpretive Data Percent cell count reference ranges are not reported, since discordance with absolute values may lead to misinterpretation of CBC data. Current Interpretive Data was last revised on 2017. Testing performed by: [facility], [address] [place] [address]., [address] Eosinophil pct 25.1 % [facility] ([place]) Comment: Interpretive Data Percent cell count reference ranges are not reported, since discordance with absolute values may lead to misinterpretation of CBC data. Current Interpretive Data was last revised on 2017. Testing performed by: [facility], [address] [place] [address]., [address] Basophil pct 0.9 % [facility] ([place]) Comment: Interpretive Data Percent cell count reference ranges are not reported, since discordance with absolute values may lead to misinterpretation of CBC data. Current Interpretive Data was last revised on 2017. Testing performed by: [address] [address] Blood 01/07/2024 1:55 PM PERSONAL LINES INSURANCE AGENT 01/07/2024 8:37 PM PERSONAL LINES INSURANCE AGENT us Shayla Joe BEEF GRINDER LAB BLOOD ORDERABLES Final R esult [facility] ([place]) 1 [facility] Department of Laboratories [place], [place] [id number] * Thyroid Function [place] (01/07/2024 1:55 PM PERSONAL LINES INSURANCE AGENT) TSH 1.74 0.30 - 4.20 mcIUnit/mL Comment:Testing performed by : [address], [address] Blood 01/07/2024 1:55 PM PERSONAL LINES INSURANCE AGENT 01/07/2024 8:37 PM PERSONAL LINES INSURANCE AGENT Shayla Joe BEEF GRINDER LAB BLOOD ORDERABLES Final R esult [facility] ([place] 1 [facility] Department [place] [address] * (ABNORMAL) CBC with auto differential (01/07/2024 1:55 PM PERSONAL LINES INSURANCE AGENT) Pathologist [facility] WBC 7.8 3.8 - 9.9 K/cumm Comment:Testing performed by : [address], [address] Hgb 12.3(L) 13.0 - 17.5 g/dL [facility] ([place]) Comment:Testing performed by : [address], [address] Hct 37.0(L) 38.9 - 50.3 % [facility] ([place]) Comment:Testing performed by : [address], [address] Plt 236 150 - 400 K/cumm [facility] ([place]) Comment:Testing performed by : [address], [address] MPV 10.7 9.1 - 12.3 fL [facility] ([place]) Comment:Testing performed by : [address], [address] RBC 3.98(L) 4.30 - 5.80 M/cumm [facility] ([place]) Comment:Testing performed by : [address], [address] MCV 93.0 81.3 - 96.4 fL [facility] ([place]) Comment:Testing performed by : [address], [address] MCH 30.9 27.1 - 33.3 pg [facility] ([place]) Comment:Testing performed by : [address], [address] MCHC 33.2 32.3 - 35.7 g/dL [facility] ([place]) Comment:Testing performed by : [facility], [address] [place] [address], [address] RDW CV 13.5 11.1 - 14.9 % [facility] ([place]) Comment:Testing performed by : [facility], [address] [place] [address], [address] RDW SD 46.1 35.7 - 48.1 fL [facility] ([place]) Comment:Testing performed by : [facility], [address] [place] [address], [address] NRBC abs 0.00 0.00 - 0.01 K/cumm [facility] ([place]) Comment:Testing performed by : [address], [address] Blood 01/07/2024 1:55 PM PERSONAL LINES INSURANCE AGENT 01/07/2024 8:37 PM PERSONAL LINES INSURANCE AGENT Shayla Joe BEEF GRINDER LAB BLOOD ORDERABLES Final R esult [facility] ([place]) 1 [facility] Department [place] [address] * Comprehensive metabolic panel (01/07/2024 1:55 PM PERSONAL LINES INSURANCE AGENT) Sodium 139 135 - 145 mmol/L Comment:Testing performed by : [facility], [address] [place] [address], [address] Potassium, pl 4.3 3.3 - 4.9 mmol/L [facility] ([place]) Comment:Testing performed by : [facility], [address] [place] [address], [address] Chloride 103 97 - 110 mmol/L [facility] ([place]) Comment:Testing performed by : [address], [address] CO2 26 22 - 32 mmol/L [facility] ([place]) Comment:Testing performed by : [address], [address] Anion gap 10 2 - 15 mmol/L [facility] ([place]) Comment:Testing performed by : [facility], [address], [place]., [address] BUN 14 6 - 25 mg/dL [facility] ([place]) Comment:Testing performed by : [address] [address] Creatinine 1.06 0.80 - 1.30 mg/dL [facility] ([place]) Comment:Testing performed by : [address] [address] Glucose 111 70 - 199 mg/dL [facility] [...] was last revised 2022. Testing performed by: [address], [address] Calcium 9.5 8.5 - 10.3 mg/dL [facility] ([place]) Comment:Testing performed by : [address] [address] Bilirubin, total 0.5 0.1 - 1.2 mg/dL [facility] ([place]) Comment:Testing performed by : [address] [address] Protein, pl 7.4 6.5 - 8.5 g/dL [facility] ([place]) Comment:Testing performed by : [address], [address] Albumin 4.3 3.5 - 5.0 g/dL [facility] ([place]) Comment:Testing performed by : [address], [address] Alk phos 72 40 - 130 Units/L [facility] ([place]) Comment:Testing performed by : [address], [address] ALT 14 7 - 55 Units/L [facility] ([place]) Comment:Testing performed by : [address], [place]., [address] AST 21 10 - 50 Units/L [facility] ([place]) Comment:Testing performed by : [facility], [address] [place] [address]., [address] Blood 01/07/2024 1:55 PM PERSONAL LINES INSURANCE AGENT 01/07/2024 8:37 PM PERSONAL LINES INSURANCE AGENT us Shayla Joe NP LAB BLOOD ORDERABLES Final R esult [facility] ([place] 1 [facility] Department [place] [address] * POCT lipid panel (12/29/2023 1:05 PM PERSONAL LINES INSURANCE AGENT) Cholesterol, POC 120 mg/dL HDL, POC 39 mg/dL Triglycerides, POC 67 mg/dL LDL Cholesterol POC 68 mg/dL Chol/HDL Ratio, POC 1.8 Non-HDL Cholesterol, POC 81 mg/dL Cholesterol Total, POC 120 mg/dL Capillary blood 12/29/2023 1 :05 PM PERSONAL LINES INSURANCE AGENT us Shayla Joe NP POINT OF CARE TEST ORDERABLE S Final Result * COLONOSCOPY (03/31/2022 10:24 AM PERSONAL LINES INSURANCE AGENT) Anatomical Region Laterality Modality Other Narrative Procedure Note Chilo Solorio MD - 03/31/2022 10:24 AM CST [facility] Patient Name: Magnus Muhammad Procedure Date: 03/31/2022 10:24 AM Date of : 1950 Admit Type: Outpatient Age: 71 Gender: Male Attending MD: Chilo Solorio M.D. Room: [facility] ENDOSCOPY ROOM 1 Note Status: Finalized Patient Profile: This is a 71 year old male. Patient has chronicpain in the left lower quadrant area. Had episode oflower GI bleeding 6 months ago possibly secondary diverticulosis. History of polyps. No familyhistory of colon cancer Procedure: Colonoscopy Indications: High risk colon cancer surveillance: Personalhistory of colonic polyps, Last colonoscopy: 2016 Referring MD: GARTH Whitley Providers: Chilo Solorio [...] under direct vision. The Pediatric Colonoscope PCF-H190L [id number] was introducedthrough the anus and advanced to [...] perforation orabscess without bleeding CPT copyright 2020 [employer]. All rights reserved. The codes documented in this report are preliminary and upon special education secretary reviewmay be revised to meet current compliance requirements. Recognized by the [employer] for promoting quality in endoscopy Chilo Solorio MD ENDOSCOPY PROCEDURES Final Result from Last 3 Months or Most Recently Relevant to Health Maintenance Insurance MEDICARE SOLUTIONS MEDICARE SOLUTIONS MEDICARE SOLUTIONS Advance Directives For more information, please contact: [phone] * Full Code (Latest Code Status on File) Date Activated Date Inactivated Comments 07/07/2022 11:22 AM 07/07/2022 6:54 PM * Full Code Date Activated Date Inactivated Comments 03/31/2022 10:36 AM 03/31/2022 4:53 PM * Full Code Date Activated Date Inactivated Comments 03/31/2022 10:36 AM 03/31/2022 10:36 AM Care Teams Water Team Leader Relationship Specialty Start Date End Date Krishan Roberson PA [address] [place] [address] PCP - General 07/27/17 Yordy Dumont MD [address] [place] [address] [address] [place] [address] Anesthesiologist Pain Management 01/05/22 Rd Adams MD [address] [place] [address] [address] [place] [address] Consulting Physician Anesthesiology 11/04/23
--- OUTSIDE RECORDS SUMMARY | 2024-03-21 00:53 | XMS_ITS | Data Portability ---
[facility] Organization [facility] Address [address] [facility] [place] [address] Care Team Providers Care Patient Services Manager Name Role Phone EVAN ROBERSON Primary Care Provider [phone] BOB AVENDANO Building Construction Foreman HODAN WEI Medicare Sales Executive KATE BARON Orthopedist ALON QUEZADA Orthopedist Assessment No assessment recorded. Plan of Treatment Reminders Order Date Submit Date Provider Last Modified By Organization Details Last Modified Time Details Appointments None recorded. Lab PSA, total, serum or plasma 2021 022 [facility], [address] [facility], [facility], [place], [address], 13:11:19 CBC 2021 022 [facility], [address] [facility], [facility], [place], [address], 13:11:17 CMP, serum or plasma 2021 022 [facility], [address] [facility], [address], [place], [address], 13:11:17 HbA1c (hemoglobi n A1c), blood 2021 022 [facility] In-Office Order, Internal Use Only DO Not Attach Compendium DO Not Attach Compendium, Do Not Delete/merge, [id number] 12:40:44 lipid panel, serum 2021 022 [facility], [address] [facility], [address], [place], [address], 2 13:11:18 HbA1c (hemoglobi n A1c), blood 2022 023 [facility] In-Office Order, Internal Use Only DO Not Attach Compendium DO Not Attach Compendium, Do Not Delete/merge, [id number] 3 12:09:48 CMP, serum or plasma 2022 023 [facility], [address] [facility], [address], [place], [address], 3 06:17:42 lipid panel, serum 2022 023 [facility], [address] [facility], [address], [place], [address], 3 06:17:42 CBC 2022 023 [facility], [address], [address], [place], [address], 3 06:17:43 Referral otolaryngo logist referral 2023 024 [facility] Da Silva DO, [address] [facility] , [address], [address], [place], [address], 4 16:33:38 Procedures None recorded. Surgeries None recorded. Imaging XR, chest, 2 view 2022 023 [facility], [address] [place], [address], 3 12:01:08 US, duplex, arterial, lower extremity 2023 024 [facility], [address] [place], [address], 4 21:30:27 Medication Orders omeprazole 40 mg capsule,de layed release 2021 022 [id number], [address], [place], [place], [id number], 12:26:17 Patient TargetsNo targets recorded. Patient Instructions Encounter Date Encounter Id Patient Instructions Last Modified By Organization Details Last Modified Time 05/07/2021 [id number] pancreatitis: care instructions jnanney Not available 05/07/2021 12:18:45 05/14/2022 [id number] A healthy lifestyle: care instructions jnanney Not available 05/14/2022 11:49:53 shortness of breath: care instructions jnanney Not available 05/14/2022 11:49:20 03/03/2023 [id number] A healthy lifestyle: care instructions jnanney Not available 03/03/2023 11:54:32 iron deficiency anemia: care instructions jnanney Not available 03/03/2023 11:55:14 07/05/2023 [id number] Peripheral Arterial Disease (PAD): Care Instructions jnanney Not available 07/05/2023 14:22:02 Reason for Referral Medical Reimbursement Specialist Referral fo r Perforation of left tympanic membrane Referring Physician: Evan Roberson, Family Medicine, Encounter Date: 03/03/2023 Results Created Date Observation Date Name Description Value Unit Range Abnormal Flag Note LastModifiedBy Organization Detail LastModifiedTime 05/08/1905/08/2021 COMP. METAB OLIC PANEL (14) glucose 116 mg/dL 65-99 above high normal Not Available [facility] ([facility]) [address] [facility], [place], [address], 05/08/2021 13:11:16 05/08/19 22 05/08/2021 COMP. METAB OLIC PANEL (14) BUN 14 mg/dL 8-27 Not Available [facility] ([facility]) [address] [facility], [place], [address], 05/08/2021 13:11:16 05/08/19 22 05/08/2021 COMP. METAB OLIC PANEL (14) creatinine 0.87 mg/dL 0.76-1 .27 Not Available [facility] ([facility]) [address] [facility] [place], [address], 05/08/2021 13:11:16 05/08/19 22 05/08/2021 COMP. METAB OLIC PANEL (14) eGFR 94 mL/mi n/1.7 3 >59 Not Available [facility] ([facility]) [address] [facility] [place], [address], 05/08/2021 13:11:16 05/08/19 22 05/08/2021 COMP. METAB OLIC PANEL (14) BUN/creatini ne ratio 16 10-24 Not Available [facility] ([facility]) [address] [facility], [place], [address], 05/08/2021 13:11:16 05/08/19 22 05/08/2021 COMP. METAB OLIC PANEL (14) sodium 142 mmol/ L 134-14 4 Not Available [facility] ([facility]) [address] [facility] [place], [address], 05/08/2021 13:11:16 05/08/19 22 05/08/2021 COMP. METAB OLIC PANEL (14) potassium 4.8 mmol/ L 3.5-5. 2 Not Available [facility] ([facility]) [address] [facility], [place], [address], 05/08/2021 13:11:16 05/08/19 22 05/08/2021 COMP. METAB OLIC PANEL (14) chloride 104 mmol/ L 96-106 Not Available [facility] ([facility]) [address] [place], [address], 05/08/2021 13:11:16 05/08/19 22 05/08/2021 COMP. METAB OLIC PANEL (14) carbon dioxide, total 22 mmol/ L 20-29 Not Available [facility] ([facility]) [address] [facility], [place], [address], 05/08/2021 13:11:16 05/08/19 22 05/08/2021 COMP. METAB OLIC PANEL (14) calcium 9.2 mg/dL 8.6-10 .2 Not Available [facility] ([facility]) [address] [facility], [place], [address], 05/08/2021 13:11:16 05/08/19 22 05/08/2021 COMP. METAB OLIC PANEL (14) protein, total 7.0 g/dL 6.0-8. 5 Not Available [facility] ([facility] [address] [facility] [place], [address], 05/08/2021 13:11:16 05/08/19 22 05/08/2021 COMP. METAB OLIC PANEL (14) albumin 4.3 g/dL 3.8-4. 8 Not Available [facility] ([facility]) [address] [facility], [place], [address], 05/08/2021 13:11:16 05/08/19 22 05/08/2021 COMP. METAB OLIC PANEL (14) globulin, total 2.7 g/dL 1.5-4. 5 Not Available [facility] ([facility]) [address] [facility] [place], [address], 05/08/2021 13:11:16 05/08/19 22 05/08/2021 COMP. METAB OLIC PANEL (14) A/G ratio 1.6 1.2-2. 2 Not Available [facility] ([facility]) [address] [facility] [place], [address], 05/08/2021 13:11:16 05/08/19 22 05/08/2021 COMP. METAB OLIC PANEL (14) bilirubin, total 0.5 mg/dL 0.0-1. 2 Not Available [facility] ([facility]) [address] [facility], [place], [address], 05/08/2021 13:11:16 05/08/19 22 05/08/2021 COMP. METAB OLIC PANEL (14) alkaline phosphatase 64 IU/L 44-121 Not Available [facility] ([facility]) [address], [place], [address], 05/08/2021 13:11:16 05/08/19 22 05/08/2021 COMP. METAB OLIC PANEL (14) AST (SGOT) 15 IU/L 0-40 Not Available [facility] ([facility]) [address] [facility], [place], [address], 05/08/2021 13:11:16 05/08/19 22 05/08/2021 COMP. METAB OLIC PANEL (14) ALT (SGPT) 12 IU/L 0-44 Not Available [facility] ([facility]) [address] [facility], [place], [address], 05/08/2021 13:11:16 05/08/19 22 05/08/2021 CBC, PLATE LET, NO DIFFE RENTI AL WBC 6.9 x10e3 /uL 3.4-10 .8 Not Available [facility] ([facility]) [address] [facility], [place], [address], 05/08/2021 13:11:17 05/08/19 22 05/08/2021 CBC, PLATE LET, NO DIFFE RENTI AL RBC 4.04 x10e6 /uL 4.14-5 .80 below low normal Not Available [facility] ([facility]) [address] [facility], [place], [address], 05/08/2021 13:11:17 05/08/19 22 05/08/2021 CBC, PLATE LET, NO DIFFE RENTI AL hemoglobin 12.7 g/dL 13.0-1 7.7 below low normal Not Available [facility] ([facility]) [address] [facility], [place], [address], 05/08/2021 13:11:17 05/08/19 22 05/08/2021 CBC, PLATE LET, NO DIFFE RENTI AL hematocrit 37.6 % 37.5-5 1.0 Not Available [facility] ([facility]) [address] [facility], [place], [address], 05/08/2021 13:11:17 05/08/19 22 05/08/2021 CBC, PLATE LET, NO DIFFE RENTI AL MCV 93 fL 79-97 Not Available [facility] ([facility]) [address] [facility], [place], [address], 05/08/2021 13:11:17 05/08/19 22 05/08/2021 CBC, PLATE LET, NO DIFFE RENTI AL MCH 31.4 pg 26.6-3 3.0 Not Available [facility] ([facility]) [address] [facility], [place], [address], 05/08/2021 13:11:17 05/08/19 22 05/08/2021 CBC, PLATE LET, NO DIFFE RENTI AL MCHC 33.8 g/dL 31.5-3 5.7 Not Available [facility] ([facility]) [address] [facility], [place], [address], 05/08/2021 13:11:17 05/08/19 22 05/08/2021 CBC, PLATE LET, NO DIFFE RENTI AL RDW 12.7 % 11.6-1 5.4 Not Available [facility] ([facility]) [address] [facility], [place], [address], 05/08/2021 13:11:17 05/08/19 22 05/08/2021 CBC, PLATE LET, NO DIFFE RENTI AL platelets 209 x10e3 /uL 150-45 0 Not Available [facility] ([facility]) [address] [facility], [place], [address], 05/08/2021 13:11:17 05/08/19 22 05/08/2021 CBC, PLATE LET, NO DIFFE RENTI AL NRBC VOCATIONAL REHABILITATION ADMINISTRATOR Not Available [facility] ([facility]) [address] [facility], [place], [address], 05/08/2021 13:11:17 05/08/19 22 05/08/2021 LIPID PANEL cholesterol, total 145 mg/dL 100-19 9 Not Available [facility] ([facility]) [address] [facility], [place], [address], 05/08/2021 13:11:17 05/08/19 22 05/08/2021 LIPID PANEL triglyceride s 77 mg/dL 0-149 Not Available [facility] ([facility]) [address] [facility], [place], [address], 05/08/2021 13:11:17 05/08/19 22 05/08/2021 LIPID PANEL HDL cholesterol 44 mg/dL >39 Not Available [facility] ([facility]) [address] [facility], [place], [address], 05/08/2021 13:11:17 05/08/19 22 05/08/2021 LIPID PANEL VLDL cholesterol chaya 15 mg/dL 5-40 Not Available [facility] ([facility]) [address] [facility], [place], [address], 05/08/2021 13:11:17 05/08/19 22 05/08/2021 LIPID PANEL LDL chol calc ([facility]) 86 mg/dL 0-99 Not Available [facility] ([facility]) [address] [facility], [place], [address], 05/08/2021 13:11:17 05/08/19 22 05/08/2021 LIPID PANEL comment: VOCATIONAL REHABILITATION ADMINISTRATOR Not Available [facility] ([facility]) [address] [facility], [place], [address], 05/08/2021 13:11:17 05/08/19 22 05/08/2021 CARDI OVASC ULAR REPOR T interpretati on Note Suppl ement al repor t is avail able. Not Available [facility] ([facility]) [address] [facility], [place], [address], 05/08/2021 13:11:18 05/08/19 22 05/08/2021 CARDI OVASC ULAR REPOR T pdf Not applic able Not Available [facility] ([facility]) [address] [facility], [place], [address], 05/08/2021 13:11:18 05/08/19 22 05/08/2021 LITHO LINK CKD PROGR AM interpretati on Note Medic al Direc tor's Note: Effec tive 2021, [facility] uses the 2020 CKD-E PI creat inine equat ion witho ut a race facto r to calcu late and repor t eGFR resul ts. eGFR resul ts repor yumiko prior to this date using the 2008 CKD-E PI equat ion are no longe r inclu ded in this repor t inter preta tion. Suppl ement al repor t is avail able. Not Available [facility] ([facility]) [address] [facility], [place], [address], 05/08/2021 13:11:18 05/08/19 22 05/08/2021 LITHO LINK CKD PROGR AM pdf . Not Available [facility] ([facility]) [address] [facility], [place], [address], 05/08/2021 13:11:18 05/08/19 22 05/08/2021 PROST ATE-S PECIF IC AG prostate specific Ag 0.4 NG/mL 0.0-4. 0 Lashell ECLIA metho dolog y. Accor deo to the Ameri can Urolo gical Assoc iatio n, Serum PSA shoul d decre ase and remai n at undet ectab le level s after radic al prost atect veronica. The AUA defin es bioch emica l recur rence as an initi al PSA value 0.2 ng/mL or great er follo wed by a subse quent confi rmato ry PSA value 0.2 ng/mL or great er. Value s obtai gloria with diffe rent assay metho ds or kits canno t be used inter garcia eamjy . Resul ts canno t be inter prete d as absol vernon evide nce of the prese nce or absen ce of [facility] se. Not Available [facility] ([facility]) [address] [facility], [place], [address], 05/08/2021 13:11:19 05/08/19 22 05/07/2021 HbA1c (hemo globi n A1c), blood HbA1c 5.7 Not Available In-Office Order Internal Use Only DO Not Attach Compendium DO Not Attach Compendium, Do Not Delete/merge, [id number] 05/07/2021 12:18:14 05/15/1905/14/2022 LIPID PANEL cholesterol, total 153.0 mg/dL 140.0- 200.0 Not Available [facility] ([facility]) [address] [place], [address], 05/15/2022 06:17:42 05/15/1905/14/2022 LIPID PANEL triglyceride s 93 mg/dL <=150 Not Available [facility] ([facility]) [address] [place], [address], 05/15/2022 06:17:42 05/15/1905/14/2022 LIPID PANEL HDL cholesterol 44.4 mg/dL 40.0-1 00.0 Not Available [facility] ([facility]) [address] [place], [address], 05/15/2022 06:17:42 05/15/1905/14/2022 LIPID PANEL VLDL cholesterol chaya 18.60 mg/dL 5.00-4 0.00 Not Available [facility] ([facility]) [address] [place], [address], 05/15/2022 06:17:42 05/15/1905/14/2022 LIPID PANEL LDL chol calc ([facility]) 91.2 Not Available [facility] ([facility]) [address] [place], [address], 05/15/2022 06:17:42 05/15/19 23 05/14/2022 COMP. METAB OLIC PANEL (14) glucose 106 mg/dL 65-99 above high normal ANION GP 13.0 mmol/ L N OSMOL 277.0 mOsM/ L N REFER ENCE RANGE : 275.0 -301. 0 Not Available [facility] ([facility]) [address] [place], [address], 05/15/2022 06:17:42 05/15/1905/14/2022 COMP. METAB OLIC PANEL (14) BUN 15 mg/dL 8-26 Not Available [facility] ([facility]) [address] [place], [address], 05/15/2022 06:17:42 05/15/1905/14/2022 COMP. METAB OLIC PANEL (14) creatinine 0.93 mg/dL 0.50-1 .40 Not Available [facility] ([facility]) [address] [place], [address], 05/15/2022 06:17:42 05/15/1905/14/2022 COMP. METAB OLIC PANEL (14) eGFR 89 mL/mi n/1.7 3 >=60 Not Available [facility] ([facility]) [address] [place], [address], 05/15/2022 06:17:42 05/15/1905/14/2022 COMP. METAB OLIC PANEL (14) BUN/creatini ne ratio 16.3 Not Available [facility] ([facility]) [address] [place], [address], 05/15/2022 06:17:42 05/15/1905/14/2022 COMP. METAB OLIC PANEL (14) sodium 138.0 mmol/ L 136.0- 144.0 Not Available [facility] ([facility]) [address] [facility], [place], [address], 05/15/2022 06:17:42 05/15/19 23 05/14/2022 COMP. METAB OLIC PANEL (14) potassium 4.6 mmol/ L 3.5-5. 3 Not Available [facility] ([facility]) [address] [facility], [place], [address], 05/15/2022 06:17:42 05/15/1905/14/2022 COMP. METAB OLIC PANEL (14) chloride 102 mmol/ l 101-11 1 Not Available [facility] ([facility]) [address] [facility], [place], [address], 05/15/2022 06:17:42 05/15/19 23 05/14/2022 COMP. METAB OLIC PANEL (14) carbon dioxide, total 26.9 mmol/ L 21.0-3 2.0 Not Available [facility] ([facility]) [address] [place], [address], 05/15/2022 06:17:42 05/15/19 23 05/14/2022 COMP. METAB OLIC PANEL (14) calcium 9.6 mg/dL 8.2-10 .0 Not Available [facility] ([facility]) [address] [place], [address], 05/15/2022 06:17:42 05/15/1905/14/2022 COMP. METAB OLIC PANEL (14) protein, total 6.8 g/dL 6.7-8. 2 Not Available [facility] ([facility]) [address] [place], [address], 05/15/2022 06:17:42 03/23/20 23 05/14/2022 COMP. METAB OLIC PANEL (14) albumin 4.2 g/dL 3.5-5. 5 Not Available [facility] ([facility]) [address] [facility] [place], [address], 05/15/2022 06:17:42 05/15/19 23 05/14/2022 COMP. METAB OLIC PANEL (14) globulin, total 2.6 g/dL 1.5-4. 5 Not Available [facility] ([facility]) [address] [facility] [place], [address], 05/15/2022 06:17:42 05/15/19 23 05/14/2022 COMP. METAB OLIC PANEL (14) A/G ratio 1.6 Not Available [facility] ([facility]) [address] [facility] [place], [address], 05/15/2022 06:17:42 05/15/19 23 05/14/2022 COMP. METAB OLIC PANEL (14) bilirubin, total 0.5 mg/dL 0.0-1. 2 Not Available [facility] ([facility]) [address] [facility] [place], [address], 05/15/2022 06:17:42 05/15/19 23 05/14/2022 COMP. METAB OLIC PANEL (14) alkaline phosphatase 79.2 IU/L 42.0-1 21.0 Not Available [facility] ([facility]) [address] [facility] [place], [address], 05/15/2022 06:17:42 05/15/19 23 05/14/2022 COMP. METAB OLIC PANEL (14) AST (SGOT) 13.5 U/L 10.0-4 2.0 Not Available [facility] ([facility]) [address] [facility] [place], [address], 05/15/2022 06:17:42 05/15/19 23 05/14/2022 COMP. METAB OLIC PANEL (14) ALT (SGPT) 13.9 U/L 10.0-6 0.0 Not Available [facility] ([facility]) [address] [place], [address], 05/15/2022 06:17:42 05/15/1905/14/2022 CBC, PLATE LET, NO DIFFE RENTI AL WBC 7.5 K/uL 3.4-10 .8 Not Available [facility] ([facility]) [address] [place], [address], 05/15/2022 06:17:43 05/15/1905/14/2022 CBC, PLATE LET, NO DIFFE RENTI AL RBC 4.3 M/uL 4.5-6. 3 below low normal Not Available [facility] ([facility]) [address] [facility], [place], [address], 05/15/2022 06:17:43 05/15/1905/14/2022 CBC, PLATE LET, NO DIFFE RENTI AL hemoglobin 12.8 g/dL 13.5-1 7.5 below low normal Not Available [facility] ([facility]) [address] [place], [address], 05/15/2022 06:17:43 05/15/1905/14/2022 CBC, PLATE LET, NO DIFFE RENTI AL hematocrit 38.9 % 40.0-5 2.0 below low normal Not Available [facility] ([facility]) [address] [place], [address], 05/15/2022 06:17:43 05/15/1905/14/2022 CBC, PLATE LET, NO DIFFE RENTI AL MCV 91 fL 80-95 Not Available [facility] ([facility]) [address] [place], [address], 05/15/2022 06:17:43 05/15/1905/14/2022 CBC, PLATE LET, NO DIFFE RENTI AL MCH 30 pg 27-32 Not Available [facility] ([facility]) [address] [facility], [place], [address], 05/15/2022 06:17:43 05/15/19 23 05/14/2022 CBC, PLATE LET, NO DIFFE RENTI AL MCHC 33 g/dL 32-36 Not Available [facility] ([facility]) [address] [facility], [place], [address], 05/15/2022 06:17:43 05/15/19 23 05/14/2022 CBC, PLATE LET, NO DIFFE RENTI AL RDW 13.7 % 11.5-1 4.5 Not Available [facility] ([facility]) [address] [facility], [place], [address], 05/15/2022 06:17:43 05/15/19 23 05/14/2022 CBC, PLATE LET, NO DIFFE RENTI AL platelets 220 K/uL 155-37 9 MPV 10.8 FL 8.9-1 2.7 N Not Available [facility] ([facility]) [address] [facility], [place], [address], 05/15/2022 06:17:43 05/15/1905/14/2022 CBC, PLATE LET, NO DIFFE RENTI AL NRBC 0 % Not Available [facility] ([facility]) [address] [place], [address], 05/15/2022 06:17:43 05/15/1905/15/2022 CARDI OVASC ULAR REPOR T interpretati on Note Suppl jina al repor t is avail able. Not Available [facility] ([facility]) [address] [place], [address], 05/15/2022 06:17:43 05/15/19 23 05/15/2022 CARDI OVASC ULAR REPOR T pdf . Not Available [facility] ([facility]) [address] [place], [address], 05/15/2022 06:17:43 05/15/19 23 05/14/2022 HbA1c (hemo globi n A1c), blood HbA1c 5.8 Not Available In-Office Order Internal Use Only DO Not Attach Compendium DO Not Attach Compendium, Do Not Delete/merge, [id number] 05/14/2022 11:48:18 03/13/19 23 03/12/2022 magalie can cardi olite stres s test (PROC ) No observ ation record ed. [facility] [address], [place], [address], 03/16/2022 11:42:52 04/07/19 23 04/07/2022 stres s echoc ardio gram No observ ation record ed. [facility] [address] [facility] [address], [place], [address], 04/08/2022 09:16:52 10/14/19 23 10/13/2022 CT, angio gram, chest + abdom en + pelvi s, w/ contr ast No observ ation record ed. [facility] [address], [place], [address], 10/14/2022 10:22:57 07/09/19 24 07/07/2023 US, roycele x, arter ial, lower extre mity No observ ation record ed. [place] [address] [place], [address], 07/12/2023 09:23:21 08/15/19 24 07/07/2023 US, roycele x, arter ial, lower extre mity No observ ation record ed. [place] [address] [place], [address], 08/16/2023 14:38:16 Result Notes None recorded. Problems Name Problem SNOMED Code Status Onset Date Resolution Date Notes Provider Name and Address Organization Details Recorded Time Chronic pancreatitis [id number] Active 2017 Evan Roberson PA-C Attn: Antionette kyle,[address], [place], [address], [facility] 8 12:38:14 Problem Notes None recorded. Procedures Surgical History Date Name Laterality Status Provider Name and Address Organization Details Recorded Time 04/01/19 colonoscopy completed Maria Guadalupe Hernández MA [facility] 05/14/2022 11:34:44 Angioplasty With Stent completed Roxanne Hernandez MA [facility] 02/24/2017 16:35:22 Arthroscopic Surgery completed Roxanne Hernandez MA [facility] 02/24/2017 16:35:33 Back Surgery completed Roxanne Hernandez MA [facility] 02/24/2017 16:35:40 Joint Replacement completed Roxanne Hernandez MA [facility] 02/24/2017 16:35:46 arthroplasty of knee completed Franchesca Holder MA [facility] 07/26/2020 11:59:31 Imaging Results Imaging Date Name Status LastModified by Organization Details LastModified Time 03/12/2022 lexiscan cardiolite stress test (PROC) completed [facility] [address], [place], [address], 03/16/2022 11:42:52 04/07/2022 stress echocardiogram completed [facility] [address] [facility] [address], [place], [address], 04/08/2022 09:16:52 10/13/2022 CT, angiogram, chest + abdomen + pelvis, w/ contrast completed [facility] [address], [place], [address], 10/14/2022 10:22:57 07/07/2023 US, duplex, arterial, lower extremity completed [address] [place], [address], 07/12/2023 09:23:21 07/07/2023 US, duplex, arterial, lower extremity completed [address] [place], [address], 08/16/2023 14:38:16 Procedure Notes None recorded. Medical Equipment None Reported. Allergies Allergen ID Allergen Name Allergen Category Reaction Reaction Severity Criticality Documentation Date Start Date Code Code System Note Provider Name and Address Organization Details Recorded Time [id number] cow milk allergeni c extract food,medi cation Not available Not available Not available 02/24/2017 [id number] 5 RxNorm Not Available Not Available Not Available Medications Name Sig Start Date Stop Date Status Note LastModified by Organization Details LastModified Time cyclobenzap rine 10 mg tablet TAKE 1 TABLET BY MOUTH NIGHTLY NEEDED FOR MUSCLE SPASM active Not Available Not Available No t Available amoxicillin 500 mg capsule TAKE 1 CAPSULE BY MOUTH THREE TIMES DAILY UNTIL GONE 03/03 completed Not Available Not Available Not Available atorvastati n 40 mg tablet TAKE 1 TABLET BY MOUTH ONCE DAILY active Not Available Not Available No t Available hydrocodone 5 mg-acetamin ophen 325 mg tablet TAKE 2 TABLETS BY MOUTH THREE TIMES DAILY NEEDED FOR PAIN active Not Available Not Available No t Available isosorbide mononitrate ER 30 mg tablet,exte nded release 24 hr 08/17 completed Not Available Not Available Not Available metronidazo le 500 mg tablet 05/14 completed Not Available Not Available Not Available sulfamethox azole 800 mg-trimetho prim 160 mg tablet TAKE 1 TABLET BY MOUTH EVERY 12 HOURS FOR 10 DAYS 03/03 completed Not Available Not Available Not Available hydrocodone 10 mg-acetamin ophen 325 mg tablet TAKE 1 TABLET BY MOUTH THREE TIMES DAILY NEEDED FOR PAIN 03/03 completed Not Available Not Available Not Available omeprazole 40 mg capsule,del ayed release TAKE 1 CAPSULE BY MOUTH TWICE DAILY 2023 active Not Available Not Available Not Avai lable ondansetron 8 mg disintegrat ing tablet 03/03 completed Not Available Not Available Not Available meloxicam 7.5 mg tablet 03/03 completed Not Available Not Available Not Available isosorbide mononitrate ER 60 mg tablet,exte nded release 24 hr TAKE 1 TABLET BY MOUTH ONCE DAILY active Not Available Not Available No t Available Nitrostat 0.4 mg sublingual tablet active Not Available Not Available Not Available hyoscyamine 0.125 mg disintegrat ing tablet 03/03 completed Not Available Not Available Not Available metoprolol tartrate 50 mg tablet 07/26 completed Not Available Not Available Not Available gabapentin 300 mg capsule TAKE 1 CAPSULE BY MOUTH THREE TIMES DAILY 07/26 completed Not Available Not Available Not Available omeprazole 20 mg capsule,del ayed release 05/04 completed Not Available Not Available Not Available methylpredn isolone 4 mg tablets in a dose pack TAKE BY MOUTH DIRECTED ON INSIDE OF PACKAGE 03/03 completed Not Available Not Available Not Available ondansetron 4 mg disintegrat ing tablet DISSOLVE 1 TABLET ON THE TONGUE EVERY 6 HOURS FOR 4 DAYS NEEDED FOR NAUSEA OR VOMITING active Not Available Not Available No t Available fluticasone propionate 50 mcg/actuati on nasal spray,suspe nsion SHAKE LIQUID AND USE 2 SPRAYS IN EACH NOSTRIL DAILY active Not Available Not Available No t Available dicyclomine 10 mg capsule TAKE ONE CAPSULE BY MOUTH THREE TIMES DAILY BEFORE MEALS NEEDED FOR ABDOMINAL CRAMPS active Not Available Not Available No t Available Adult Low Dose Aspirin 81 mg tablet,josh yed release active Not Available Not Available Not Available azithromyci n 500 mg tablet TAKE 1 TABLET BY MOUTH EVERY DAY FOR 3 DAYS 05/14 completed Not Available Not Available Not Available metoprolol tartrate 25 mg tablet TAKE 1 TABLET BY MOUTH TWICE DAILY active Not Available Not Available No t Available duloxetine 20 mg capsule,del ayed release TAKE 1 CAPSULE BY MOUTH NIGHTLY 03/03 completed Not Available Not Available Not Available duloxetine 30 mg capsule,del ayed release 07/04 completed Not Available Not Available Not Available duloxetine 60 mg capsule,del ayed release 07/04 completed Not Available Not Available Not Available pregabalin 75 mg capsule 07/26 completed Not Available Not Available Not Available Proventil HFA 03/03 completed Not Available Not Available Not Available Narcan 4 mg/actuatio n nasal spray active Not Available Not Available Not Available Vitals Date Recorded Body height Provider Name an d Address Organization Details Last Updated DateTime 05/07/2021 182.88 cm Jocelyn Marrero-[place]erv[place] - [facility] 05/07/2021 11:39:35 Date Recorded Body temperature Provider Name a nd Address Organization Details Last Updated DateTime 05/07/2021 97.4 [degF] Jocelyn Diaz MA [facility] 05/07/2021 11:40:29 Date Recorded Oxygen saturation Oxygen saturation in Arterial blood by Pulse oximetry Provider Name and Address Organization Details Last Updated DateTime 05/07/2021 98 % 98 % Jocelyn Diaz MA [facility] 05/07/2021 11:40:40 Date Recorded Heart rate Provider Name an d Address Organization Details Last Updated DateTime 05/07/2021 64 /min Jocelyn Fernando iorSOILA [place] - [facility] 05/07/2021 11:40:42 Date Recorded Body mass index (BMI) Body weight Provider Name and Address Organization Details Last Updated DateTime 05/07/2021 22 kg/m2 88645.96 g Jocelyn Diaz MA [facility] 05/07/2021 11:40:50 Date Recorded Body height Provider Name an d Address Organization Details Last Updated DateTime 06/10/2021 182.88 cm Franchesca Holder MA [facility] 06/11/19 12:00:41 Date Recorded Body temperature Provider Name a nd Address Organization Details Last Updated DateTime 06/10/2021 97.1 [degF] [facility] 022 12:01:19 Date Recorded Oxygen saturation Oxygen saturation in Arterial blood by Pulse oximetry Provider Name and Address Organization Details Last Updated DateTime 06/10/2021 98 % 98 % [facility] 06/10/2021 12:01:31 Date Recorded Heart rate Provider Name an d Address Organization Details Last Updated DateTime 06/10/2021 85.01 /min Franchesca Holder MA [facility] 06/11/19 22 12:01:35 Date Recorded Body mass index (BMI) Body weight Provider Name and Address Organization Details Last Updated DateTime 06/10/2021 21.6 kg/m2 58787.19 g Franchesca Holder MA [facility] 06/10/2021 12:02:46 Date Recorded Body height Provider Name an d Address Organization Details Last Updated DateTime 05/14/2022 182.88 cm Maria Guadalupe Panchal am, [facility] 05/14/2022 11:32:15 Date Recorded Body mass index (BMI) Provider Name and Address Organization Details Last Updated DateTime 05/14/2022 21.7 kg/m2 Maria Guadalupe Hernández MA [facility] 05/14/2022 11:33:08 Date Recorded Body weight Provider Name an d Address Organization Details Last Updated DateTime 05/14/2022 95190.78 g Maria Guadalupe Panchal am, MA [facility] 05/14/2022 11:33:09 Date Recorded Oxygen saturation Oxygen saturation in Arterial blood by Pulse oximetry Provider Name and Address Organization Details Last Updated DateTime 05/14/2022 98 % 98 % Maria Guadalupe Hernández MA [facility] 05/14/2022 11:36:42 Date Recorded Heart rate Provider Name an d Address Organization Details Last Updated DateTime 05/14/2022 67 /min Maria Guadalupe Panchal am, MA [facility] 05/14/2022 11:36:49 Date Recorded Body temperature Provider Name a nd Address Organization Details Last Updated DateTime 05/14/2022 98.6 [degF] Maria Guadalupe Hernández MA [facility] 05/14/2022 11:36:52 Date Recorded Body height Provider Name an d Address Organization Details Last Updated DateTime 03/03/2023 182.88 cm Franchesca Holder MA [facility] 03/03/19 11:39:44 Date Recorded Body mass index (BMI) Body weight Provider Name and Address Organization Details Last Updated DateTime 03/03/2023 24.1 kg/m2 18836.44 g Franchesca Holder MA [facility] 03/03/2023 11:39:50 Date Recorded Oxygen saturation Oxygen saturation in Arterial blood by Pulse oximetry Provider Name and Address Organization Details Last Updated DateTime 03/03/2023 99 % 99 % Franchesca Holder MA [facility] 03/03/2023 11:43:42 Date Recorded Heart rate Provider Name an d Address Organization Details Last Updated DateTime 03/03/2023 68 /min Franchesca Holder MA [facility] 03/03/19 11:43:45 Date Recorded Body height Provider Name an d Address Organization Details Last Updated DateTime 07/05/2023 182.88 cm Faby Matias MA [facility] 07/05/19 14:07:03 Date Recorded Body mass index (BMI) Body weight Provider Name and Address Organization Details Last Updated DateTime 07/05/2023 20.7 kg/m2 00507.19 g aFby Matias MA [facility] 07/05/2023 14:07:13 Date Recorded Oxygen saturation Oxygen saturation in Arterial blood by Pulse oximetry Provider Name and Address Organization Details Last Updated DateTime 07/05/2023 98 % 98 % Faby Matias MA [facility] 07/05/2023 14:09:38 Date Recorded Heart rate Provider Name an d Address Organization Details Last Updated DateTime 07/05/2023 71 /min Faby Matias MA [facility] 07/05/19 14:09:40 Date Recorded Systolic blood pressure Diastolic blood pressure Provider Name and Address Organization Details Last Updated DateTime 05/07/2021 118 mm[Hg] 64 mm[Hg] Jocelyn Diaz MA [facility] 05/07/2021 11:42:14 Date Recorded Systolic blood pressure Diastolic blood pressure Provider Name and Address Organization Details Last Updated DateTime 06/10/2021 100 mm[Hg] 70 mm[Hg] Franchesca Holder MA [facility] 06/10/2021 12:02:43 Date Recorded Systolic blood pressure Diastolic blood pressure Provider Name and Address Organization Details Last Updated DateTime 05/14/2022 110 mm[Hg] 71 mm[Hg] Maria Guadalupe Hernández MA [facility] 05/14/2022 11:36:40 Date Recorded Systolic blood pressure Diastolic blood pressure Provider Name and Address Organization Details Last Updated DateTime 03/03/2023 139 mm[Hg] 84 mm[Hg] Franchesca Holder MA [facility] 03/03/2023 11:43:38 Date Recorded Systolic blood pressure Diastolic blood pressure Provider Name and Address Organization Details Last Updated DateTime 07/05/2023 124 mm[Hg] 72 mm[Hg] Faby Matias MA [facility] 07/05/2023 14:09:36 Social History Question Answer Notes LastModified by Organizat ion Details LastModified Time Tobacco Smoking Status Never Smoker [facility] 02/24/2017 16:35:55 What Is Your Level Of Alcohol Consumption? None [email or web address] Information not available 02/24/2017 What Is Your Level Of Caffeine Consumption? Occasional Information not available 07/26/2020 In The 14 Days Before Symptom Onset, Have You Had Close Contact With A Laboratory-confi rmed COVID-19 While That Case Was Ill? No Information not available 07/26/2020 In The 14 Days Before Symptom Onset, Have You Had Close Contact With A Person Who Is Under Investigation For COVID-19 While That Person Was Ill? No Information not available 07/26/2020 Have You Been To An Area Known To Be High Risk For COVID-19? No Information not available 07/26/2020 Are You Currently Employed? Yes Information not available 07/26/2020 What Type Of Diet Are You Following? REGULAR Information not available 07/26/2020 What Is Your Occupation? Self Employed Information not available 07/26/2020 What Was The Date Of Your Most Recent Tobacco Screening? 07/05/2023 Information not available 07/05/2023 What Is Your Relationship Status? Information not available 07/26/2020 Do You Have Smoke And Carbon Monoxide Detectors In Your Home? Yes Information not available 07/26/2020 Are You Passively Exposed To Smoke? Yes Information not available 07/26/2020 Do You Feel Stressed (tense, Restless, Nervous, Or Anxious, Or Unable To Sleep At Night)? [id number] [email or web address] Information not available 05/07/2021 Do You Use Any Illicit Or Recreational Drugs? Yes Marijuana Information not available 07/26/2020 Has Tobacco Cessation Counseling Been Provided? No Information not available 07/26/2020 On What Date Was Tobacco Cessation Counseling Provided? 07/05/2023 Information not available 07/05/2023 Do You Or Have You Ever Used Any Other Forms Of Tobacco Or Nicotine? No Information not available 07/26/2020 Sex: Male Functional Status Question Answer Note LastModified by Organization D etails LastModified Time Are you able to care for yourself? Yes Information n ot available 07/26/2020 Mental Status None recorded. Family History Relationship Description Onset Age of this Age Resolved Age Notes LastModified by Organization Details LastModified Time Mother Asthma [email or web address] Not available 02/24/2017 16:36:13 Father Coronary arterioscler osis [email or web address] Not available 02/24 16:36:25 Father Diabetes mellitus [email or web address] Not available 02/24 16:36:34 Father Heart disease [email or web address] Not available 02/24 16:36:43 Father Hypertensive disorder [email or web address] Not available 02/24 16:36:53 Father Hypercholest erolemia [email or web address] Not available 02/24 16:37:01 Medical History Condition Response Coronary Artery Disease N Other N High Blood Pressure Y Atrial Fibrillation N Thyroid Problems N Kidney or Bladder Problems Y GI Problems Y Depression N COPD N Blood Clots N Skin Problems N Anemia N Heart Attack ([place]) Y Diabetes Y Anxiety Disorder N Muscle, Joint, or Bone Problems Y Seizures/Epilepsy N Acid Reflux (GERD) Y Cancer Y Stroke N Asthma Y Allergies N High Cholesterol Y Hepatitis N Liver Disease N Headaches Y Osteoporosis N Heart Failure N Past Encounters Encounter ID Performer Location Encounter Start Date Encounter Closed Date Diagnosis/Indication Diagnosis SNOMED-CT Code Diagnosis ICD10 Code Diagnosis Note [id number] [facility] [address] [place] [address] 02/24/2017 15:55:33 02/25/2017 10:02:54 Long-term drug therapy 041246648 Z79.899 Coronary atherosclerosis 659203174 I25.84 Essential hypertension 08080136 I10 [id number] [facility] [address] [place] [address] 05/04/2017 11:21:42 05/04/2017 13:06:50 Chronic pancreatitis 331389862 K86.1 Lumbar radiculopathy 128 875145 M54.16 Long-term drug therapy 866295046 Z79.747 [id number] [facility] [address] [place] [address] 04/11/2018 11:03:05 04/11/2018 12:28:12 History of polyp of colon 499428975 Z86.010 Essential hypertension 91617592 I10 Chronic pancreatitis 235 939592 K86.1 Acid reflux 803020922 K2 1.9 Ganglion cyst 54781918 M 67.442 Left lower quadrant pain 429222446 R10.32 [id number] Evan Roberson PA-C [facility] [address] [place] [address] 06/26/2019 10:51:24 07/20/2019 03:47:04 Chronic pancreatitis 971334761 K86.1 [id number] Evan Roberson PA-C [facility] [address] [place] [address] 08/18/2019 09:29:59 08/18/2019 12:01:02 Increased frequency of urination 324747921 R35.0 Mixed hyperlipidemia 267 458653 E78.2 [id number] Franchesca Holder MA [facility] [address] [place] [address] 07/26/2020 11:52:29 07/29/2020 05:24:32 Screening for malignant neoplasm of prostate 702032645 Z12.5 [id number] Evan Roberson PA-C [facility] [address] [place] [address] 05/07/2021 11:15:50 05/07/2021 12:35:01 Chronic pancreatitis 215118610 K86.1 Raynaud's phenomenon 266 477991 I73.00 Gastroesop hageal reflux disease without esophagitis 038448471 K21.9 Screening for malignant neoplasm of prostate 976784594 Z12.5 [id number] Evan Roberson PA-C [facility] [address] [place] [address] 06/10/2021 11:54:02 06/10/2021 13:07:37 Cervical lymphadenopathy 241168415 R59.0 follow up here if swelling recurs [id number] Evan Roberson PA-C [facility] [address] [place] [address] 05/14/2022 11:29:33 05/18/2022 16:02:19 Dyspnea 499408048 R06.02 Mixed hyperlipidemia 267 848579 E78.2 Overweight 032697999 E66 .3 [id number] Evan Roberson PA-C [facility] [address] [place] [address] 03/03/2023 11:17:45 03/09/2023 12:27:26 Perforation of left tympanic membrane 8754004139 174829 H72.2X2 Overweight 441687056 E66 .3 Iron defic iency anemia 71818042 D50.8 [id number] Evan Roberson PA-C [facility] [address] [place] [address] 07/05/2023 13:51:37 07/06/2023 14:23:59 Peripheral vascular disease 940603093 I73.89 Body mass index 20-24 - normal 851375890 Z68.20 Coronary arteriosclerosis 52372811 I25.10 Health Concerns Section Related Observation LastModified by Organization Detai ls LastModified Time None Recorded Concern Status LastModified by Organization Details LastModified Time None Recorded Advance Directives Directive None Recorded Payers Encounter Date Sequence Insurance Name Policy Number Policy De León Covered Member ID De León Member ID Guarantor Name 05/07/2021 2 [place] Magnus Muhammad [id number] Magnus Muhammad 06/10/2021 2 [place] Magnus Muhammad [id number] Magnus Muhammad 05/14/2022 1 [facility] (MEDICARE REPLACEMENT/A DVANTAGE - HMO) [id number] Magnus Muhammad [id number] Magnus Muhammad 03/03/2023 1 [facility] (MEDICARE REPLACEMENT/A DVANTAGE - HMO) [id number] Magnus Muhammad [id number] Magnus Muhammad 07/05/2023 1 [facility] (MEDICARE REPLACEMENT/A DVANTAGE - HMO) [id number] Magnus Muhammad [id number] Magnus Muhammad Notes Date Note Type Note Provider Name and Address Organization Details Recorded Time 05/07/2021 text/html check up...needs labs ...hx of chronic pancreatitis...has cardiology appt next week Evan Roberson PA-C Attn: Accounting, [address] [place], [address], [facility] 05/07/2021 12:28:52 06/10/2021 text/html Magnus Muhammad is a 70 year old male with history of a cervical laminectomy presents for a swollen lump on the back of his neck for a year. It comes and goes, getting smaller and larger. Lately it has been more painful and sore. It makes his neck stiff and gives him a headache, especially if he touches and pushes on it. The lump is never itchy and does not leak blood or pus. He denies fever. He would also like to have his blood rechecked, he had low iron and has been taking supplements. He has scheduled a colonoscopy for June 28. He does have GERD and takes omeprazole 40 mg BID, which he feels keeps it under control, although he has had reflux in the past couple weeks. He does not recall ever having an endoscopy. He does experience nausea daily. His last black stool was 3 months ago. Evan Roberosn PA-C Attn: Accounting, [address] [facility], [place], [address], [facility] 06/10/2021 12:34:48 05/14/2022 text/html wants a pulm...v s problems breathing since covid...exertional SOB worse than he should he thinks...cardiolog y worked him up and said heart was good.. Evan Roberson PA-C Attn: Accounting, [address] [place], [address], [facility] 05/14/2022 11:50:30 03/03/2023 text/html left TM has perforation...has had repeated patches but they dont hold...wants a different ENT Evan Roberson PA-C Attn: Accounting, [address] [place], [address], [facility] 03/03/2023 11:56:34 07/05/2023 text/html has neuropathy i n feet and describes raynauds..has hx of FL and wonders if this is sequelae...also bilateral feet will go purple as well...also describes RUTHANN Roberson PA-C Attn: Accounting[address] [facility], [place], [address], [facility] 07/05/2023 14:23:14
--- OUTSIDE RECORDS SUMMARY | 2024-03-21 00:53 | XMS_ITS | Encounter Summary ---
Author Organization [facility] Address [address] [place] [address] Phone Care Team Providers Care Fire Sprinkler Fitter Name Role Phone Krishan Roberson Primary Care Provider [phone] Yordy Dumont MD Unavailable [phone] MD Unavailable [phone] Encounter Details Date Type Department Care Team (Late st Contact Info) Description 10/20/2023 Telephone [facility] [place] ([facility]) [address], [address] [place] [address] Power Le, OD [address] [facility] OPHTHALMOLOGY, [place] [address] [place] [address] Social History Tobacco Use Types Packs/Day Years [...] points, staff should administer the PHQ-9) 0 08/11/2023 Personal Safety Answer Date Recorded Have you ever been in or are you currently in a harmful physical or emotional relationship or is someone making you feel afraid or unsafe? Denies 07/07/2022 Sex and Gender Information Value Date Recorded Sex Assigned at Not on file Legal Sex Male 6:35 PM [facility] FORMER Gender Identity Male 09/12/2019 2:57 PM CDT Sexual Orientation Straight 09/12/2019 2: 57 PM CDT documented as of this encounter Plan of Treatment Not on file documented as of this encounter Goals Goal Patient Goal Type Associated Problems Recent Progress Patient-Stated? Author [facility] On track( 022 2:23 PM [facility] FORMER) Susan Simmons, RN Note: Patient will establish a comfort-function goal and identify the pain level that will allow the patient to perform desired activities and achieve an acceptable quality of life. documented as of this encounter Visit Diagnoses Not on filedocumented in this encounter Care Teams Fire Sprinkler Fitter Relationship Specialty Start Date End Date Krishan Roberson PA [address] [place] [address] PCP - General 07/27/17 Yordy Dumont MD [address] [place] [address] DR BARTON [address] [place] [id number] Anesthesiologist Pain Management 01/05/22 Rd Adams MD [address] [place] [address] DR BARTON [address] [place] [id number] Consulting Physician Anesthesiology 11/04/23 documented as of this encounter
[2024-03-21 08:49] LABS: Basophils Absolute Auto 0.1 K/mm3 (0.0-0.1); Basophils Percent Auto 0.8 % (0.2-1.2); Eosinophils Absolute Auto 2.1 K/mm3 (0-0.3); Hematocrit 36.2 % (42.0-52.0); Hemoglobin 12.3 g/dL (14.0-18.0); Immature Granulocyte Absolute 0.02 K/mm3 (0.00-0.031); Immature Granulocyte Percent A 0.3 % (0-0.5); Lymphocytes Absolute Auto 1.59 K/mm3 (0.9-3.2); Lymphocytes Percent Auto 20.9 % (18.3-44.2); Mean Corpuscular Hemoglobin 30.8 pg (26-34); Mean Corpuscular Volume 90.7 fl (80-100); Monocytes Absolute Auto 0.4 K/mm3 (0.1-0.6); Monocytes Percent Auto 5.1 % (2.6-8.5); Neutrophils Absolute Auto 3.5 K/mm3 (1.3-6.7); Neutrophils Percent Auto 45.9 % (45.5-73.1); Platelet Count Result 193 k/mm3 (150-375); Red Blood Count 3.99 M/mm3 (4.6-6.20); Red Cell Distribution Width 13.2 % (11.5-14.5); White Blood Count 7.6 K/mm3 (4.5-10.0)
[2024-03-21 09:00] LABS: Anion Gap 9 mmol/L (4-12); Blood Urea Nitrogen 13 mg/dL (9-20); Carbon Dioxide 26 mmol/L (22-30); Chloride 105 mmol/L (98-107); Estimated CRCL calculation 67 ml/min; Estimated Glomerular Filt Rate > 60; Glucose 104 mg/dL (65-110); Potassium 3.7 mmol/L (3.4-5.0); Sodium 140 mmol/L (137-145)
[2024-03-21 09:10] LABS: Anisocytosis 1+; Platelet Estimate Adequate (Adequate); Schistocytes None Seen
--- NOTE | 2024-03-21 10:11 | P.SEDATION_ITS ---
Moderate Sedation Note-Pt Data Patient Data Diagnosis: Coronary artery disease s/ prior PCI Present Complaint: Coronary artery disease s/ prior PCI Procedure to be performed/Plan: Coronary angiography, left heart cath, +/- PCI Allergies Allergy/AdvReac Type Severity Reaction Status Date / Time No Known Allergies Allergy Verified 03/21/24 08:38 Home Medications ?Medication ?Instructions ?Recorded ?Confirmed ?Type atorvastatin 40 mg tablet mg 03/20/24 History cyclobenzaprine 10 mg tablet mg 03/20/24 History fluticasone propionate 50 intranasal 03/20/24 History mcg/actuation nasal spray,suspension hydrocodone 10 mg-acetaminophen tablet 03/20/24 History 325 mg tablet isosorbide mononitrate 60 mg mg PO 03/20/24 History tablet,extended release 24 hr metoprolol tartrate 25 mg tablet mg 03/20/24 History omeprazole 40 mg capsule,delayed mg 03/20/24 History release aspirin 81 mg capsule 81 mg PO DAILY 03/21/24 03/21/24 History Sedation/Anesthesia: No previous sedation/anesthesia problems (including family history). [facility] Past Medical History Medical History Vitamin D deficiency Squamous cell carcinoma of right ear Mixed hyperlipidemia COPD mixed type ASHD (arteriosclerotic heart disease) Surgical History Surgical History Hx of spinal fusion Family History Family History Mother Patient's mother is , Onset Age: 90 Father Patient's father is , Onset Age: 70 Social History Social History Smoking status: Never smoker Second hand tobacco smoke exposure: No Alcohol intake: former Substance use: never Substance use type: does not use Living arrangements: with family Spiritual care concerns: No Mod Sed Physical Exam Physical Exam Pre Procedural Exam: Normal: Appearance, Lungs, Heart Rate, Heart Rhythm, Neuro Exam, Extremities and Skin Hours since solid foods: 12 Hours since liquid intake: 8 Mallampati Classification: class II Internal Medicine - PN: Obj Da Vital Signs Vital Signs: Vital Signs - 24 hr 03/21/24 08:41 Temperature 36.9 C Pulse Rate 73 Respiratory Rate 15 Blood Pressure 123/85 Pulse Oximetry 98 Oxygen Delivery Room Air Labs 03/21/24 08:45 03/21/24 08:45 Labs: Laboratory Results - last 24 hr 03/21/24 08:45 WBC 7.6 RBC 3.99 L Hgb 12.3 L Hct 36.2 L MCV 90.7 MCH 30.8 MCHC 34.0 RDW 13.2 Plt Count 193 MPV 10.0 Immature Gran % (Auto) 0.3 Neut % (Auto) 45.9 Lymph % (Auto) 20.9 Levy % (Auto) 5.1 Eos % (Auto) 27.0 H Baso % (Auto) 0.8 Lymph # (Auto) 1.59 Levy # (Auto) 0.4 Eos # (Auto) 2.1 H Baso # (Auto) 0.1 Abs Immat Gran (auto) 0.02 Absolute Neuts (auto) 3.5 Absolute Nucleated RBC 0.000 Nucleated RBC % 0.0 Platelet Estimate Adequate Anisocytosis 1+ Schistocytes None seen Sodium 140 Potassium 3.7 Chloride 105 Carbon Dioxide 26 Anion Gap 9 BUN 13 Creatinine 0.88 Estim Creat Clear Calc 67 Estimated GFR > 60 Glucose 104 Calcium 9.0 ASA Classification/Sedation ASA Classification/Sedation ASA Class: III Emergent: No Risks: Risks, benefits and alternatives explained and patient/family accepted plan for sedation. Patient re-evaluated immediately prior to sedation.
--- NOTE | 2024-03-21 10:11 | WPDHPUPDATE1 ---
History and Physical Update Update Date/Time: 03/21/24 10:11 History and Physical has been reviewed, including an updated exam of the patient. There are NO changes in the patient's condition. Risks, benefits, and alternatives have been discussed and questions answered. Patient agrees to proceed with procedure.
--- NOTE | 2024-03-21 10:13 | P.PCNCC_ITS ---
Cardiac Cath Procedure Note Date of procedure:: 03/21/24 Performing physician:: CATHETERIZATION LABORATORY REPORT Procedure Date: 03/21/2024 Calf Skinner: Eren Vivas M.D., [facility]? Referring Physician: Efrain Chaney M.D. ? Anesthesia: Versed and Fentanyl were ordered and given in my presence at 10:18, procedure ended at 10:42. Supervision of nurse monitored moderate sedation with Versed and Fentanyl was provided for 24 minutes. Total of Versed 1mg and Fentanyl 50mcg were administered by the Retail Account Manager RN Sylvain Edmonds. Pre-op Diagnosis: Coronary artery disease Post-op Diagnosis: 1. Distal left main disease, angiographic 60% stenosis (best seen on the IVORIAN CAUDAL view). 2. Significant ostial LAD disease. 3. Patent stent in the proximal RCA. The distal RCA at the bifurcation of the RPDA and RPLV has a severe subtotal occlusion (Portillo 1,1,1). The proximal RPDA has an 80-90% stenosis. KENTON II flow in the RPDA. Procedure(s): 1. Moderate sedation 2. Ultrasound-guided access of the right radial artery 3. Coronary angiography Access Site: Right radial artery Brief History and Clinical Indications: Patient is a 73 year old male with CAD s/p prior PCI to proximal RCA in 2013 who is referred for [facility] for angina. All risks, benefits and alternatives to left heart catheterization with or without percutaneous coronary intervention was discussed at length with the patient. Risk of complications including but not limited to bleeding, infection, arrhythmia, stroke, worsening kidney function, blood loss, groin hematoma, limb loss, emergency coronary artery bypass grafting, and even were discussed with the patient and all questions were answered. The patient understood and wished to proceed. Time out called, patient name, date of , medical record number, allergies, procedure performed, identify Calf Skinner, patient and staff member concurred with accurate data, procedure carried on. Findings: LEFT HEART CATHETERIZATION FINDINGS: 1. Left main: On the IVORIAN CAUDAL view, the distal left main has an angiographic 60% stenosis 2. Left anterior descending: The ostium of the LAD has severe disease. The proximal portion of the LAD has mild disease. The diagonal branch has moderate disease in the mid portion. 3. Left circumflex: The left circumflex artery is a small caliber vessel with mild diffuse disease in the proximal and mid portion. 4. Right coronary artery: The RCA is the dominant vessel. Patent stent in the proximal RCA. The RCA has heavy diffuse calcifications. The mid portion has diffuse mild disease. The distal RCA at the bifurcation of the RPDA and RPLV has a severe subtotal occlusion (Portillo 1,1,1). The proximal RPDA has an 80-90% stenosis. KENTON II flow in the RPDA. Description of Procedure: Informed consent signed and placed in the chart. Patient transferred to dental laboratory assistant room. Prepped and draped in usual sterile fashion. 2% lidocaine injected subcutaneously in right wrist area. 22-gauge venipuncture catheter used to access the right radial artery under ultrasound guidance. 6-FR slender sheath placed in right radial artery. Nitroglycerine and Verapamil were given intraarterial through the sheath. Versacore wire advanced under fluoroscopy 5F Tig 4 diagnostic catheter engaged Right Coronary Artery 5F FL 4 diagnostic catheter engaged Left Main Coronary Artery. Multiple orthogonal angiogram obtained and reviewed Hemostasis was achieved by application of TR band. Disposition: Home Plan: The patient will be monitored in the recovery area. Will discuss findings with the referring physician. Continue aggressive medical therapy and risk factor modification. ? Eren Vivas M.D. Interventional Cardiology
== END 2024-03-21 14:00 | disposition home or self-care (01) ==
PROVIDERS: PCP Physician Assistant; Visit Provider Internal Medicine
PROC: (CPT 93454; principal; 2024-03-21 10:00)
DX: I25.10 Atherosclerotic heart disease of native coronary artery without angina pectoris (principal); Z95.5 Presence of coronary angioplasty implant and graft; E78.2 Mixed hyperlipidemia
CPT/HCPCS: 36415; 80048; 85025; 93454; C1769; C1887; C1894; J0583; J1644; J2003; J2250; J2305; J3010; J7040